=== PATIENT | female | born 1980 | race Caucasian/White ===

== ENCOUNTER → 2017-12-29 14:06 | Outpatient (CLI) | payer BC, SELFPAY ==
--- NOTE | 2017-12-29 | US_ITS ---
MM Dig mamm BI DX w/CAD, US breast RT complete INDICATION: palpable abnormality in the right breast ORDERING PHYSICIAN: Franklyn Barajas MD PATIENT AGE: 37 years COMPARISON: None TECHNIQUE: Dense fibroglandular tissue bilaterally decreasing the sensitivity of mammography. FINDINGS: Scattered areas of asymmetric density which appear to compress out on problem-solving views. No malignant appearing mass or malignant. Microcalcification. Right breast ultrasound complete: No suspicious solid or cystic lesions evident. Heterogeneous fibroglandular tissue noted IMPRESSION: No convincing evidence of malignancy. There are scattered scattered asymmetric densities which are felt to be due to fibroglandular tissue. Suggest 6 month follow-up to confirm baseline BI-RADS Category: 3 Benign Finding Short Term Follow-up RECOMMENDED FOLLOW-UP: 6M - 6 MONTH FOLLOW-UP Negative mammogram and negative ultrasound does not exclude the possibility of malignancy especially in this patient with dense fibroglandular tissue. Any palpable nodule should be managed on a clinical basis (A letter has been sent to the patient regarding results of the study.)
== END ==
PROVIDERS: Family Provider Family Medicine; PCP Family Medicine; Visit Provider Obstetrics & Gynecology
DX: R92.8 Other abnormal and inconclusive findings on diagnostic imaging of breast (principal)
CPT/HCPCS: 76641; 77066

== ENCOUNTER → 2018-07-12 12:45 | Outpatient (CLI) | payer BC, SELFPAY ==
--- NOTE | 2018-07-12 12:46 | MM_ITS ---
MM Dig mamm BI DX w/CAD, US breast RT complete INDICATION: Follow up abnormal mammogram and ultrasound ORDERING PHYSICIAN: Franklyn Barajas MD PATIENT AGE: 37 years COMPARISON: 12/29/2017 TECHNIQUE: Standard images performed with spot compression views and right breast ultrasound FINDINGS: There is fibroglandular tissue which decreases the sensitivity of mammography. Scattered areas of asymmetry are noted. Spot compression views suggest that these areas compress out as fibroglandular tissue. No malignant appearing masses or malignant appearing microcalcifications. Right breast ultrasound: No cystic or solid lesions evident. IMPRESSION: Dense fibroglandular tissue with scattered areas of asymmetry. No evidence of malignancy. Scattered areas of asymmetry are felt to be due to asymmetric tissue. Recommend screening mammogram December 2018 BI-RADS Category: 2 Benign Finding(s) RECOMMENDED FOLLOW-UP: 6M - 6 MONTH FOLLOW-UP (A letter has been sent to the patient regarding results of the study.)
== END ==
PROVIDERS: PCP Family Medicine; Visit Provider Obstetrics & Gynecology
DX: N63.10 Unspecified lump in the right breast, unspecified quadrant (principal)
CPT/HCPCS: 76641; 77066

== ENCOUNTER → 2018-10-09 10:02 | Outpatient (CLI) | payer BC, SELFPAY ==
--- NOTE | 2018-10-09 10:10 | XR_ITS ---
XR knee XR knee LT 4V Comparison: September 27, 2017 3 view left knee History: Left knee pain 10 days. Patient felt pressure with turning. Has bruising at the lower leg. Technique: Weightbearing AP, lateral and Villalpando views were performed as well as oblique. Findings: Today's standing 4 view left knee is compared to previous September 27, 2017 nonweightbearing views of left knee Today's study show no No fracture. No joint effusion. Joint spaces well-maintained with no significant arthritic changes. Bones well mineralized. No erosions. Patellofemoral relationships appear normal. Small flabella accessory ossicle posteriorly the lateral compartment incidentally noted. Normal variant Impression: No fracture nor effusion. Negative left knee.
== END ==
PROVIDERS: PCP Family Medicine; Visit Provider Orthopaedic Surgery
DX: M70.42 Prepatellar bursitis, left knee (principal)
CPT/HCPCS: 73564

== ENCOUNTER → 2018-10-19 09:12 | Outpatient (CLI) | payer BC, SELFPAY ==
--- NOTE | 2018-10-19 09:14 | MR_ITS ---
MR knee LT wo con HISTORY: Left knee pain, meniscal tear, bruising anteriorly swelling ITS.REASON: evaluate for patella tendon injury/ meniscal tear ORDERING PHYSICIAN: Mendy Powell MD PATIENT AGE: 38 years Comparison: 09/27/2018 TECHNIQUE: Standard multiplanar multiecho sequences are performed without contrast. FINDINGS: Cruciate ligaments are intact. Collateral ligaments are intact. The quadriceps tendon and patellar tendon have an unremarkable appearance. Complex fluid collection is present in the prepatellar region measuring 3 cm cephalad to caudad 2 cm transverse and 0.6 cm AP with some internal synechiae. No meniscal tear. No bone marrow edema. There is a small knee joint effusion with some loculated fluid noted on the distal femur at the diaphyseal metaphyseal junction medially. IMPRESSION: 1. No evidence of internal derangement 2. Complex fluid collection in the prepatellar region possibly due to prepatellar bursitis. The patellar tendon does appear intact. 3. Small knee joint effusion with loculation along the medial aspect of the distal femoral shaft
== END ==
PROVIDERS: PCP Family Medicine; Visit Provider Orthopaedic Surgery
DX: M25.562 Pain in left knee (principal)
CPT/HCPCS: 73721

== ENCOUNTER → 2019-07-11 07:49 | Outpatient (CLI) | payer BC, SELFPAY ==
--- NOTE | 2019-07-11 07:49 | MM_ITS ---
PROCEDURE: MM DIG SCREENING MAMM BI W/CAD CLINICAL INDICATION: screening There is a history of breast cancer patient's mother diagnosed after menopause and in the patient's maternal and paternal aunt. COMPARISON: Digital mammogram 12/29/2017 And 07/12/2018 TECHNIQUE: Standard CC and MLO images were obtained. R2 CAD reviewed. FINDINGS: Prominent diffuse heterogenic fibroglandular densities are seen throughout both breasts. Again noted is asymmetrically increased glandular elements in the upper outer quadrant right breast which are stable unchanged from the previous exams. There is no new or suspicious lesion in either breast and no suspicious microcalcifications. IMPRESSION: Prominent heterogenic breast density with no suspicious lesions seen BI-RAD Category: 1 Negative FOLLOW-UP: 1YR 1 Year Follow-up (A letter has been sent to the patient regarding results of the study.) Dictated by: Dr. Lawrence Ford MD 07/12/2019 11:[address] Lawrence Ford MD in [place] 07/12/2019 11:57
== END ==
PROVIDERS: PCP Family Medicine; Visit Provider Obstetrics & Gynecology
DX: Z12.31 Encounter for screening mammogram for malignant neoplasm of breast (principal)
CPT/HCPCS: 77067

== ENCOUNTER → 2020-02-09 11:08 | Outpatient (CLI) | payer BC, SELFPAY ==
[2020-02-10 08:35] LABS: Covid-19 Nasal PCR Sendout UK Not Detected
== END ==
PROVIDERS: PCP Family Medicine; Visit Provider Family Medicine
DX: Z03.818 Encounter for observation for suspected exposure to other biological agents ruled out (principal); Z11.59 Encounter for screening for other viral diseases
CPT/HCPCS: U0003

== ENCOUNTER → 2020-02-20 10:46 | Outpatient (CLI) | payer BC, SELFPAY ==
[2020-02-21 13:42] LABS: Covid-19 Nasal PCR Sendout Lex NOT DETECTED
== END ==
PROVIDERS: PCP Family Medicine; Visit Provider Family Medicine
DX: Z03.818 Encounter for observation for suspected exposure to other biological agents ruled out (principal)
CPT/HCPCS: U0004

== ENCOUNTER → 2020-03-10 15:22 | Outpatient (CLI) | payer BC, SELFPAY | PROVIDERS: PCP Family Medicine; Visit Provider Family Medicine | DX: Z03.818 Encounter for observation for suspected exposure to other biological agents ruled out (principal) | CPT/HCPCS: U0003 ==

== ENCOUNTER → 2020-04-16 07:37 | Outpatient (CLI) | payer BC, SELFPAY ==
--- NOTE | 2020-04-16 07:45 | MR_ITS ---
PROCEDURE: MR KNEE RT WO CON CLINICAL INDICATION: ACUTE PAIN OF RIGHT KNEE, POSITIVE LUIS MANUEL TEST POSTERIOR AND MEDIAL SIDED KNEE PAIN. KNEE INSTability. PAIN WHEN BENDING AND SQUATING. NO INJURY. SYMPTOMS X1.5 MONTHS. NO PRIOR. COMPARISON: CR [id number] XR knee LT 3V from 09/27/2018 TECHNIQUE: Routine multiplanar multi echo sequences are performed without gadolinium enhancement. FINDINGS: The cruciate ligaments, collateral ligaments, patellar tendon, and quadriceps tendon are intact. No meniscal tear apparent. No bone bruise. The joint spaces are well preserved. No significant effusion. IMPRESSION: Negative MRI of the right knee. No internal derangement apparent Dictated by: Donavan Hager MD 04/18/2020 10:59 Donavan Hager MD in [place] 04/18/2020 10:59
== END ==
LOC: RAD 07:37
PROVIDERS: PCP Family Medicine; Visit Provider Family Medicine
DX: M25.561 Pain in right knee (principal); S83.206A Unspecified tear of unspecified meniscus, current injury, right knee, initial encounter
CPT/HCPCS: 73721

== ENCOUNTER → 2020-07-02 15:37 | Outpatient (CLI) | payer BC, SELFPAY ==
[2020-07-02 16:27] LABS: Basophils # 0.1 K/mm3 (0-0.2); Basophils % 0.7 % (0.1-2.0); Eosinophils # 0.1 K/mm3 (0.0-0.4); Eosinophils % 1.4 % (0.1-12.0); Hematocrit 46.1 % (37.0-47.0); Hemoglobin 15.6 g/dL (12.2-16.2); Lymphocytes # 2.4 K/mm3 (0.7-4.5); Lymphocytes % 26.4 % (10-50); Mean Corpuscular HGB Conc 33.8 g/dL (31.8-35.4); Mean Corpuscular Hemoglobin 30.1 pg (27.0-31.2); Mean Platelet Volume 7.9 fl (7.4-10.4); Monocytes # 0.4 K/mm3 (0.1-1.0); Monocytes % 4.5 % (1.7-9.3); Neutrophils # 6.1 K/mm3 (1.8-7.8); Platelet Count 309 K/mm3 (142-424); Red Blood Count 5.18 M/mm3 (4.20-5.40); Red Cell Distribution Width 13.1 % (11.5-17.5); White Blood Count 9.1 K/mm3 (4.8-10.8)
[2020-07-02 16:39] LABS: Strep Scrn Group A (Rapid) Negative (Negative)
== END ==
PROVIDERS: Physician Assistant; Visit Provider Family Medicine
DX: J02.9 Acute pharyngitis, unspecified (principal)
CPT/HCPCS: 36415; 85025; 87070; 87430

== ENCOUNTER → 2020-07-08 14:58 | Outpatient (CLI) | payer BC, SELFPAY ==
--- NOTE | 2020-07-08 15:01 | MM_ITS ---
PROCEDURE: MM DIG SCREENING MAMM BI W/CAD . CLINICAL INDICATION: SCREENING there is a history of breast cancer patient's mother diagnosed after menopause and in the patient's maternal aunt. COMPARISON: MG DXBI MM Dig mamm BI DX w/CAD from 12/29/2017 MG DXBI MM Dig mamm BI DX w/CAD from 07/12/2018 MG MM DIG SCREENING MAMM BI W/CAD from 07/11/2019 TECHNIQUE: Standard CC and MLO images and 3D Tomosynthesis was obtained. R2 CAD reviewed. FINDINGS: Prominent somewhat heterogenic fibroglandular densities are seen throughout both breast. Again somewhat asymmetrically increased glandular elements are seen upper outer quadrant right breast. There has been some mild progressive fatty replacement of the breast parenchyma compared with earlier studies. There is no new or suspicious lesion in either breast and no suspicious microcalcifications. IMPRESSION: Diffusely dense parenchymal pattern with no suspicious lesions seen BI-RAD Category: 1 Negative FOLLOW-UP: 1YR 1 Year Follow-up (A letter has been sent to the patient regarding results of the study.) Dictated by: Dr. Lawrence Ford MD 07/10/2020 13:37 Dr. Lawrence Ford MD in [place] 07/10/2020 13:37
== END ==
PROVIDERS: PCP Family Medicine; Visit Provider Family Medicine
DX: Z12.31 Encounter for screening mammogram for malignant neoplasm of breast (principal)
CPT/HCPCS: 77063; 77067

== ENCOUNTER 2020-12-12 15:10 | Emergency (ER) | payer BC, SELFPAY ==
[2020-12-12 15:15] VITALS: BP 122/78; PULSE 75; RESP 19; TEMP 36.9; O2SAT 100; BMI 26.2
--- NOTE | 2020-12-12 15:36 | HMH.EDUTC ---
[facility] [place] Disposition Clinical Impression: Strep pharyngitis Disposition: Home, Self-Care Condition on Discharge: Good Instructions: DI for Strep Throat Prescriptions: Amoxicillin [Amoxicillin 875MG Tab] 875 mg PO Q12H #20 tab Transmission Status: Pending to [facility] Fluconazole [Diflucan 150mg tab] 150 mg PO ONCE 1 Days #1 tab Transmission Status: Pending to [facility] Referrals: Fredrick May MD [Primary Care Provider] - Time of Disposition: 15:40 Medical Decision Making - Scout Inquiry Pt receiving controlled substance: No Vital Signs: 12/12/20 15:15 Temperature 98.5 F Temperature Source Oral Pulse Rate [Right Brachial] 75 Respiratory Rate 19 Blood Pressure [Right Arm] 122/78 Blood Pressure Mean [Right Arm] 92 Blood Pressure Source [Right Arm] Automatic Cuff Blood Pressure Position [Right Arm] Sitting 02 Sat by Pulse Oximetry 100 Oxygen Delivery Method Room Air - Lab Data Lab results reviewed: Yes: I reviewed the patient's lab results. [facility] [place] HPI - General Stated complaint: sore throat Time Seen by Provider: 12/12/20 15:36 Mode of Arrival: Ambulatory Source of Information: Patient Limitations: No Limitations Description of Symptoms (Recalled from Triage Doc. by RN): PATIENT C/O SORE THROAT AND HEADACHE SINCE YESTERDAY. SON WAS DX WITH STREP LAST WEEK HEENT Symptoms (Recalled from RN notes): Yes Resp Symptoms (Recalled from RN notes): No Skin Symptoms (Recalled from RN notes): No MS Symptoms (Recalled from RN notes): No Functional Status (Recalled from RN notes): WNL - History of Present Illness Provider Complaint: Sore throat and headache since yesterday. Son had strep a few weeks ago. Onset (ago): day(s) (1) Relieving factors: none Exacerbating factors: none Associated symptoms: denies other symptoms Treatments prior to arrival: none - Related Data Previous Rx's Medication Instructions Recorded Amoxicillin [Amoxicillin 875MG 875 mg PO Q12H #20 tab 12/12/20 Tab] Fluconazole [Diflucan 150mg tab] 150 mg PO ONCE 1 Days #1 tab 12/12/20 Allergies Allergy/AdvReac Type Severity Reaction Status Date / Time No Known Allergies Allergy Verified 11/29/18 09:10 - Worker's Comp Is this a Worker's Comp case?: No [facility] History - Hepatitis A Screen Drug use history?: No High risk sexual behaviors?: No History of sexually transmitted infection?: No Currently employed?: No Childcare worker?: No Do you have indoor plumbing?: Yes Do you have electricity?: Yes Attestation statement:: This patient has been screened for Hepatitis A risk factors. I have reviewed the patient's past medical history: Yes Medical History: Denies:: Cancer, Diabetes Mellitus Type 1, Diabetes Mellitus Type 2, Internal Pacemaker, MRSA, Seizures Other Medical History: Denies: Blood Transfusion Reaction Laterality Cases: Left: Other Other Surgeries: Yes: Cholecystectomy, Tubal Ligation, Other. No: Pacemaker Amputation: No Fractures: No Comment: 2013- Lap Cholecystectomy. 2013- Rt. Ankle surgery. 2016- BTL - Social History Smoking Status: Current every day smoker Tobacco Type: cigarettes # Packs/Day (cigarettes): 1 Alcohol Intake: never Substance Use Type: denies use Occupational Status: other Housing: house Household Members: spouse, family Family Hx:: Cancer, Diabetes ROS Obtained: Yes All systems reviewed & no additional complaints - ENT Ears, Nose, Mouth, and Throat: Reports headache(s), Reports sore throat Physical Exam - General General appearance: alert, in no apparent distress - Eye Eye exam: Present: PERRL - ENT ENT exam: Present: TM's normal bilaterally - Expanded ENT Exam Throat exam: Present: tonsillar erythema, tonsillomegaly, tonsillar exudate - Respiratory Respiratory exam: Present: normal lung sounds bilaterally - Cardiovascular Cardiovascular exam: Present: regular rate, normal rhythm - Neurological Exam Neurological exam
[2020-12-12 15:38] LABS: UTC Strep Screen (Rapid) Negative (Negative)
[2020-12-12 15:40] VITALS: BP 122/78; PULSE 75; RESP 19; TEMP 36.9; O2SAT 100
== END 2020-12-12 15:42 | disposition home or self-care (01) ==
PROVIDERS: Emergency Provider Physician Assistant; PCP Family Medicine
DX: J02.0 Streptococcal pharyngitis (principal)
CPT/HCPCS: 87880; 99202; G0463

== ENCOUNTER 2021-06-06 09:53 | Emergency (ER) | payer BC, SELFPAY ==
[2021-06-06 10:00] VITALS: BP 141/89; PULSE 75; RESP 18; TEMP 36.8; O2SAT 98; BMI 26.7
--- NOTE | 2021-06-06 10:45 | HMH.EDUTC ---
[facility] [place] Disposition Clinical Impression: Acute maxillary sinusitis Qualifiers: Recurrence: non-recurrent Qualified Code(s): J01.00 - Acute maxillary sinusitis, unspecified Disposition: Home, Self-Care Condition on Discharge: Good Instructions: Sinusitis, DI for Sinusitis Additional Instructions: Start antibiotic patient to take as ordered for a full length of time even if you feel better. Sinus infections do not get better overnight. It may take 2-3 days to notice much improvement so be sure to use conservative measures as discussed for symptoms. Increase fluids Humidifier/vaporizer as needed Tylenol and ibuprofen as needed for fever or pain. If symptoms do not improve or get worse return or be seen in the ER Follow-up with primary care this week Prescriptions: methylPREDNISolone [Medrol 4mg tab] 4 mg PO DIRECTED #21 tab Transmission Status: Pending to [facility] Azithromycin [Zithromax 250mg tab] 250 mg PO DIRECTED #6 tab Transmission Status: Pending to [facility] Referrals: Fredrick May MD [Primary Care Provider] - Time of Disposition: 10:54 Medical Decision Making - Scout Inquiry Pt receiving controlled substance: No Vital Signs: 06/06/21 10:00 Temperature 98.3 F Temperature Source Oral Pulse Rate [Left Brachial] 75 Respiratory Rate 18 Blood Pressure [Left Arm] 141/89 H Blood Pressure Mean [Left Arm] 106 Blood Pressure Source [Left Arm] Automatic Cuff Blood Pressure Position [Left Arm] Sitting 02 Sat by Pulse Oximetry 98 Oxygen Delivery Method Room Air [facility] [place] HPI - General Chief complaint: Urgent Treatment Center Stated complaint: sinus headache, chest congetion Time Seen by Provider: 06/06/21 10:45 Mode of Arrival: Ambulatory Source of Information: Patient Limitations: No Limitations Description of Symptoms (Recalled from Triage Doc. by RN): PATIENT C/O SINUS PRESSURE, COUGH AND CHEST CONGESTION X 2 DAYS HEENT Symptoms (Recalled from RN notes): No Resp Symptoms (Recalled from RN notes): No Skin Symptoms (Recalled from RN notes): No MS Symptoms (Recalled from RN notes): No Functional Status (Recalled from RN notes): WNL - History of Present Illness Provider Complaint: 40 yr old female presents for sinus pressure,yellow thick drainage,coughing up yellow sputum, maxillary pain, tooth pain and sore throat for 1 week and not improving - Related Data Previous Rx's Medication Instructions Recorded Amoxicillin [Amoxicillin 875MG 875 mg PO Q12H #20 tab 12/12/20 Tab] Fluconazole [Diflucan 150mg tab] 150 mg PO ONCE 1 Days #1 tab 12/12/20 Azithromycin [Zithromax 250mg 250 mg PO DIRECTED #6 tab 06/06/21 tab] methylPREDNISolone [Medrol 4mg 4 mg PO DIRECTED #21 tab 06/06/21 tab] Allergies Allergy/AdvReac Type Severity Reaction Status Date / Time No Known Allergies Allergy Verified 11/29/18 09:10 - Worker's Comp Is this a Worker's Comp case?: No [facility] History - Hepatitis A Screen Drug use history?: No High risk sexual behaviors?: No History of sexually transmitted infection?: No Currently employed?: No Childcare worker?: No Do you have indoor plumbing?: Yes Do you have electricity?: Yes Attestation statement:: This patient has been screened for Hepatitis A risk factors. I have reviewed the patient's past medical history: Yes Medical History: Denies:: Cancer, Diabetes Mellitus Type 1, Diabetes Mellitus Type 2, Internal Pacemaker, MRSA, Seizures Other Medical History: Denies: Blood Transfusion Reaction Laterality Cases: Left: Other Other Surgeries: Yes: Cholecystectomy, Tubal Ligation, Other. No: Pacemaker Amputation: No Fractures: No Comment: 2013- Lap Cholecystectomy. 2013- Rt. Ankle surgery. 2016- BTL - Social History Smoking Status: Current every day smoker Tobacco Type: cigarettes # Packs/Day (cigarettes): 1 Alcohol Intake: never Substance Use Type: denies use Occupational Status: other Housing: hous
[2021-06-06 10:55] VITALS: BP 141/89; PULSE 75; RESP 18; TEMP 36.8; O2SAT 98
== END 2021-06-06 10:59 | disposition home or self-care (01) ==
PROVIDERS: Emergency Provider Nurse Practitioner Family; PCP Family Medicine
DX: J01.00 Acute maxillary sinusitis, unspecified (principal); F17.210 Nicotine dependence, cigarettes, uncomplicated
CPT/HCPCS: 99202; G0463

== ENCOUNTER → 2021-07-23 15:03 | Outpatient (CLI) | payer BC, SELFPAY ==
--- NOTE | 2021-07-23 15:08 | MM_ITS ---
PROCEDURE INFORMATION: Exam: MG Bilateral Screening 3D Mammography Exam date and time: 07/23/2021 3:08 PM Age: 40 years old Clinical indication: Encounter for screening mammogram for malignant neoplasm of breast TECHNIQUE: Imaging protocol: Bilateral screening tomosynthesis and 2D mammography including computer-aided detection (CAD) when performed. COMPARISON: 1. MG MM DIG SCREENING MAMM BI W/CAD 07/08/2020 3:00 PM 2. MG MM DIG SCREENING MAMM BI W/CAD 07/11/2019 8:21 AM FINDINGS: MAMMOGRAPHY: Breast composition: The breast tissue is heterogeneously dense, which may obscure small masses. Mass: Broad nodular asymmetry occupying much of the middle third of the right upper outer quadrant is most likely on the basis of underlying cystic change. Architectural distortion: None. Calcifications: No suspicious calcifications. Asymmetric density: None. Skin thickening: None. Axillary adenopathy: None. IMPRESSION: Patient to be recalled for right breast ultrasound for further evaluation of a right breast asymmetry. ASSESSMENT: BI-RADS Category 0: Incomplete- Need Additional Imaging Evaluation and/or Prior Mammograms for Comparison
== END ==
PROVIDERS: PCP Family Medicine; Visit Provider Family Medicine
DX: Z12.31 Encounter for screening mammogram for malignant neoplasm of breast (principal)
CPT/HCPCS: 77063; 77067

== ENCOUNTER 2021-07-26 09:42 | Emergency (ER) | payer BC, SELFPAY ==
[2021-07-26 10:04] VITALS: BP 130/91; PULSE 102; RESP 16; TEMP 36.9; O2SAT 98; BMI 26.5
[2021-07-26 10:13] LABS: UTC Strep Screen (Rapid) Positive (Negative)
[2021-07-26 10:22] VITALS: BP 130/91; PULSE 102; RESP 16; TEMP 36.9
--- NOTE | 2021-07-26 10:47 | HMH.EDUTC ---
[facility] [place] Disposition Clinical Impression: Strep throat Disposition: Home, Self-Care Condition on Discharge: Good Instructions: Strep Throat, DI for Strep Throat Additional Instructions: Drink plenty of fluids. Take tylenol or ibuprofen for pain or fever. Take the medications as directed. Follow up with your regular doctor. GO TO THE ER FOR ANY WORSENING SYMPTOMS Throw your tooth brush away and get a new one. Quarantine until you know the results of your covid-19 test. If it is positive, the health department should call you and give you further instructions about your length of Quarantine and other things. Notify your school or workplace of your results and follow their instructions regarding return to work/school. Prescriptions: Amoxicillin/Potassium Clav [Augmentin 875-125 Tablet] 1 tab PO Q12H 10 Days #20 tab Transmission Status: Received by [facility] Benzonatate [Benzonatate 100mg cap] 100 mg PO TIDP PRN #30 cap PRN Reason: Cough Transmission Status: Received by [facility] methylPREDNISolone [Medrol] 4 mg PO DIRECTED 6 Days #21 packet Transmission Status: Received by [facility] Referrals: Fredrick May MD [Primary Care Provider] - Forms: Work/School Release Time of Disposition: 11:01 Medical Decision Making - Medical Records Medical records reviewed: No: I reviewed the patient's medical records. - Scout Inquiry Pt receiving controlled substance: No Vital Signs: 07/26/21 10:04 07/26/21 10:22 Temperature 98.4 F 98.4 F Temperature Source Oral Pulse Rate 102 H Pulse Rate [Right] 102 H Respiratory Rate 16 16 Blood Pressure 130/91 H Blood Pressure [Right Arm] 130/91 H Blood Pressure Mean [Right Arm] 104 02 Sat by Pulse Oximetry 98 - Lab Data Lab results reviewed: Yes: I reviewed the patient's lab results. Lab Results 07/26/21 10:06: Strep Scn Rapid [facility] Positive A [facility] [place] HPI - General Stated complaint: sore throat, cough, congestion, h/a Time Seen by Provider: 07/26/21 10:47 Mode of Arrival: Ambulatory Source of Information: Patient Limitations: No Limitations Description of Symptoms (Recalled from Triage Doc. by RN): pt c/o cough, congestion, sore throat, and INIGUEZ. x3 days. HEENT Symptoms (Recalled from RN notes): Yes (congestion, sore throat and INIGUEZ) Resp Symptoms (Recalled from RN notes): Yes (cough) Skin Symptoms (Recalled from RN notes): No MS Symptoms (Recalled from RN notes): No Functional Status (Recalled from RN notes): wnl - History of Present Illness Provider Complaint: She c/o sore throat for the past 2 days. She has had a cough and low grade fever too. Her son has strep throat and her mother has covid-19. She wants to be checked for both of these. - Related Data Previous Rx's Medication Instructions Recorded Amoxicillin [Amoxicillin 875MG 875 mg PO Q12H #20 tab 12/12/20 Tab] Fluconazole [Diflucan 150mg tab] 150 mg PO ONCE 1 Days #1 tab 12/12/20 Azithromycin [Zithromax 250mg 250 mg PO DIRECTED #6 tab 06/06/21 tab] methylPREDNISolone [Medrol 4mg 4 mg PO DIRECTED #21 tab 06/06/21 tab] Amoxicillin/Potassium Clav 1 tab PO Q12H 10 Days #20 tab 07/26/21 [Augmentin 875-125 Tablet] Benzonatate [Benzonatate 100mg 100 mg PO TIDP PRN #30 cap 07/26/21 cap] methylPREDNISolone [Medrol] 4 mg PO DIRECTED 6 Days #21 07/26/21 packet Allergies Allergy/AdvReac Type Severity Reaction Status Date / Time No Known Allergies Allergy Verified 11/29/18 09:10 - Worker's Comp Is this a Worker's Comp case?: No [facility] History - Hepatitis A Screen Drug use history?: No High risk sexual behaviors?: No History of sexually transmitted infection?: No Currently employed?: No Childcare worker?: No Do you have indoor plumbing?: Yes Do you have electricity?: Yes Attestation statement:: This patient has been screened for Hepatitis A risk factors. I have reviewed the patient's
== END 2021-07-26 11:16 | disposition home or self-care (01) ==
PROVIDERS: Emergency Provider Nurse Practitioner Family; PCP Family Medicine
DX: J02.0 Streptococcal pharyngitis (principal); Z20.822 Contact with and (suspected) exposure to COVID-19; F17.210 Nicotine dependence, cigarettes, uncomplicated
CPT/HCPCS: 87880; 99203; C9803; G0463; U0003; U0005

== ENCOUNTER → 2021-07-28 10:11 | Outpatient (CLI) | payer BC, SELFPAY ==
[2021-07-28 10:46] LABS: Adenovirus,PCR Not Detected (NotDetected); Bordetella Pertussis Not Detected (NotDetected); Chlamydophila Pneumoniae, PCR Not Detected (NotDetected); Coronavirus 19, PCR Not Detected (NotDetected); Coronavirus 229E Not Detected (NotDetected); Coronavirus NL63 Not Detected (NotDetected); Coronavirus OC43 Not Detected (NotDetected); Coronovirus HKU1,PCR Not Detected (NotDetected); Influenza A, PCR Not Detected (NotDetected); Influenza AH1, 2009 Not Detected (NotDetected); Influenza AH1, PCR Not Detected (NotDetected); Influenza AH3,PCR Not Detected (NotDetected); Influenza B, PCR Not Detected (NotDetected); Mycoplasma Pneumoniae, PCR Not Detected (NotDetected); Parainfluenza 1, PCR Not Detected (NotDetected); Parainfluenza 2, PCR Not Detected (NotDetected); Parainfluenza 3, PCR Not Detected (NotDetected); Parainfluenza 4, PCR Not Detected (NotDetected); Respiratory Syncytial Virus Not Detected (NotDetected); Rhinovirus/Enterovirus Not Detected (NotDetected)
[2021-07-28 13:34] LABS: Human Metapneumovirus Detected (NotDetected)
== END ==
PROVIDERS: PCP Family Medicine; Visit Provider Family Medicine
DX: Z20.822 Contact with and (suspected) exposure to COVID-19 (principal); B97.81 Human metapneumovirus as the cause of diseases classified elsewhere
CPT/HCPCS: 87581; 87632; 87798; C9803; U0003; U0005

== ENCOUNTER → 2021-08-05 08:29 | Outpatient (CLI) | payer BC, SELFPAY ==
--- NOTE | 2021-08-05 08:35 | US_ITS ---
PROCEDURE INFORMATION: Exam: US Right Breast, Complete Exam date and time: 08/05/2021 8:35 AM Age: 40 years old Clinical indication: Patient recalled for further evaluation nodular asymmetry in the right breast TECHNIQUE: Imaging protocol: Complete ultrasound of all four quadrants of the Right breast and the retroareolar regions, including ultrasound of the axilla when performed. COMPARISON: BREASTRT US breast RT complete 07/12/2018 1:53 PM FINDINGS: Breast: Sonographic images of the right breast including the retroareolar region, all 4 quadrants and the axilla do not demonstrate any solid masses. Minimal subcentimeter cystic change is present. Dense somewhat nodular benign-appearing parenchyma is identified in the right upper outer quadrant. No architectural distortion or acoustical shadowing. No skin thickening or axillary adenopathy. IMPRESSION: A six-month follow-up diagnostic right mammogram is recommended to ensure stability broad nonspecific nodular asymmetry occupying much of the right upper outer quadrant. ASSESSMENT: BI-RADS Category 3: Probably benign
== END ==
LOC: RAD 08:29
PROVIDERS: PCP Family Medicine; Visit Provider Physician Assistant
DX: R92.8 Other abnormal and inconclusive findings on diagnostic imaging of breast (principal)
CPT/HCPCS: 76641

== ENCOUNTER 2021-08-09 09:05 | Emergency (ER) | payer BC, SELFPAY ==
--- NOTE | 2021-08-09 09:27 | XR_ITS ---
PROCEDURE INFORMATION: Exam: XR Left Foot Exam date and time: 08/09/2021 9:27 AM Age: 40 years old Clinical indication: Injury or trauma; Fall; Sprain or strain; Left; Injury date: 08/06/21; Injury details: Rolled ankle and foot TECHNIQUE: Imaging protocol: XR Left foot. Views: 3 or more views. COMPARISON: KNEELTWO MR knee LT wo con 10/19/2018 9:23 AM FINDINGS: Bones/joints: No acute fracture or malalignment. Joint spaces are maintained. Soft tissues: Normal. IMPRESSION: No acute fracture or malalignment.
--- NOTE | 2021-08-09 09:27 | XR_ITS ---
PROCEDURE INFORMATION: Exam: XR Left Ankle Exam date and time: 08/09/2021 9:27 AM Age: 40 years old Clinical indication: Injury or trauma; Fall; Sprain or strain; Ankle and foot; Left; Additional info: Rolled ankle TECHNIQUE: Imaging protocol: XR Left ankle. Views: 3 or more views. COMPARISON: CR XR FOOT LT MIN 3V 08/09/2021 9:33 AM FINDINGS: Bones/joints: No acute fracture or malalignment. Joint spaces are maintained. Soft tissues: Normal. IMPRESSION: No acute fracture or malalignment.
[2021-08-09 09:32] VITALS: BP 135/87; PULSE 103; RESP 18; TEMP 36.5; O2SAT 98; BMI 26.5
--- NOTE | 2021-08-09 09:41 | HMH.EDUTC ---
[facility] [place]: Sprain of left foot Qualifiers: Encounter type: initial encounter Qualified Code(s): S93.602A - Unspecified sprain of left foot, initial encounter Left ankle sprain Qualifiers: Encounter type: initial encounter Involved ligament of ankle: unspecified ligament Qualified Code(s): S93.402A - Sprain of unspecified ligament of left ankle, initial encounter Disposition: Home, Self-Care Condition on Discharge: Good Instructions: DI for Ankle Sprain, Ankle Sprain, DI for Foot Sprain, How to Apply an Abel Wrap Additional Instructions: Rest the extremity, apply ice for 15 minutes as tolerated three or four times per day, Wear the abel wrap for compression, Elevate the extremity as tolerated while you are resting. Take ibuprofen for pain. I sent in a prescription to your pharmacy. Follow up with Dr. Lemon (podiatry). Sometimes there can be fractures that don't show up well on the first set of x-rays. So, you should follow up if you continue to have symptoms. I put in a referral but you need to call her office and schedule an appointment. Follow up with your regular doctor. GO TO THE ER FOR ANY WORSENING SYMPTOMS Prescriptions: Ibuprofen [Ibuprofen 800mg Tablet] 800 mg PO Q8HP PRN #30 tab PRN Reason: Moderate Pain Transmission Status: Pending to [facility] Referrals: Fredrick May MD [Primary Care Provider] - Pniky Lemon DPM [Staff Physician] - Forms: Work/School Release Time of Disposition: 10:25 Medical Decision Making - Medical Records Medical records reviewed: No: I reviewed the patient's medical records. - Scout Inquiry Pt receiving controlled substance: No Vital Signs: 08/09/21 09:32 Temperature 97.7 F Temperature Source Oral Pulse Rate [Left] 103 H Respiratory Rate 18 Blood Pressure [Right Arm] 135/87 Blood Pressure Mean [Right Arm] 103 02 Sat by Pulse Oximetry 98 - Radiology Data #1 Image(s): Ankle Image Reviewed: Yes I reviewed the patient's radiology image, Yes I have reviewed radiologist's interpretation Preliminary Findings: Normal/NAD, No Fracture Seen PROCEDURE INFORMATION: Exam: XR Left Ankle Exam date and time: 08/09/2021 9:27 AM Age: 40 years old Clinical indication: Injury or trauma; Fall; Sprain or strain; Ankle and foot; Left; Additional info: Rolled ankle TECHNIQUE: Imaging protocol: XR Left ankle. Views: 3 or more views. COMPARISON: CR XR FOOT LT MIN 3V 08/09/2021 9:33 AM FINDINGS: Bones/joints: No acute fracture or malalignment. Joint spaces are maintained. Soft tissues: Normal. IMPRESSION: No acute fracture or malalignment. #2 Image(s): Foot/Toes Image Reviewed: Yes I reviewed the patient's radiology image, Yes I have reviewed radiologist's interpretation Preliminary Findings: No Fracture Seen PROCEDURE INFORMATION: Exam: XR Left Foot Exam date and time: 08/09/2021 9:27 AM Age: 40 years old Clinical indication: Injury or trauma; Fall; Sprain or strain; Left; Injury date: 08/06/21; Injury details: Rolled ankle and foot TECHNIQUE: Imaging protocol: XR Left foot. Views: 3 or more views. COMPARISON: KNEELTWO MR knee LT wo con 10/19/2018 9:23 AM FINDINGS: Bones/joints: No acute fracture or malalignment. Joint spaces are maintained. Soft tissues: Normal. IMPRESSION: No acute fracture or malalignment. [facility] [place] Stated complaint: left foot injury 08/06/21 Time Seen by Provider: 08/09/21 09:41 Mode of Arrival: Ambulatory Source of Information: Patient Limitations: No Limitations Description of Symptoms (Recalled from Triage Doc. by RN): PT STATES SHE ROLLED HER ANKLE AND FOOT THREE DAYS AGO. PT IS COMPLAING OF LEFT FOOT PAIN. HEENT Symptoms (Recalled from RN notes): No Resp Symptoms (Recalled from RN notes)
[2021-08-09 10:36] VITALS: BP 142/94; PULSE 94; RESP 18; TEMP 36.5
== END 2021-08-09 10:37 | disposition home or self-care (01) ==
PROVIDERS: Emergency Provider Nurse Practitioner Family; PCP Family Medicine
DX: S93.602A Unspecified sprain of left foot, initial encounter (principal); S93.402A Sprain of unspecified ligament of left ankle, initial encounter; X50.1XXA Overexertion from prolonged static or awkward postures, initial encounter; Y92.9 Unspecified place or not applicable; F17.210 Nicotine dependence, cigarettes, uncomplicated
CPT/HCPCS: 73610; 73630; 99202; G0463

== ENCOUNTER 2021-08-30 09:00 | Emergency (ER) | payer BC, SELFPAY ==
[2021-08-30 09:10] VITALS: BP 128/91; PULSE 94; RESP 18; TEMP 37.1; O2SAT 98; BMI 26.5
--- NOTE | 2021-08-30 09:37 | HMH.EDUTC ---
[facility] [place]ression: Bronchitis Sinusitis Qualifiers: Sinusitis location: unspecified location Chronicity: unspecified Qualified Code(s): J32.9 - Chronic sinusitis, unspecified Disposition: Home, Self-Care Condition on Discharge: Good Instructions: Sinusitis, DI for Sinusitis Additional Instructions: ? Start antibiotic today. Be sure to complete entire prescription even if feeling better ? Monitor temp. Tylenol every 4 hours as needed and / or ibuprofen every 6 hours as needed ( As long as your primary care physician has told you that it ok to take both. For fever/aches/pains ER if no less than 101 despite Tylenol or Motrin ? Humidifier/vaporizer or hot steamy shower *Tessalon Perles will not cause drowsiness but use at bedtime to help stop cough so that you may get some rest. *Start steroid today. Helps with inflammation therefore, cough and wheezing. Follow directions on the package. Reviewed side effects. Patient reports taking them before. Follow up IMMEDIATELY for new or worsening of symptoms OR no noticeable improvement over the next 48-72 hours. 911 immediately for any life threatening symptoms such as chest pain or difficulty breathing Prescriptions: Benzonatate [Benzonatate 100mg cap] 100 mg PO Q8HP PRN #15 cap PRN Reason: Cough [facility]: [facility] Amoxicillin/Potassium Clav [Augmentin 875-125 Tablet] 1 tab PO Q12H 10 Days #20 tab Transmission Status: [facility] methylPREDNISolone [Medrol 4mg tab] 4 mg PO DIRECTED #21 tab Transmission Status: [facility] Referrals: Fredrick May MD [Primary Care Provider] - As needed Time of Disposition: 10:28 Medical Decision Making - Scout Inquiry Pt receiving controlled substance: No Scout was queried for this patient: No Vital Signs: 08/30/21 09:10 08/30/21 09:54 Temperature 98.7 F 98.7 F Temperature Source Oral Pulse Rate 94 H Pulse Rate [Right Brachial] 94 H Respiratory Rate 18 18 Blood Pressure 128/91 H Blood Pressure [Right Arm] 128/91 H Blood Pressure Mean [Right Arm] 103 Blood Pressure Source [Right Arm] Automatic Cuff Blood Pressure Position [Right Arm] Sitting 02 Sat by Pulse Oximetry 98 Oxygen Delivery Method Room Air - Lab Data Lab results reviewed: Yes: I reviewed the patient's lab results. Lab Results 08/30/21 09:20: Group A Strep Rapid Negative Orders (Tests/Meds): ORDERS Category Date Time Status Strep Screen Confirmation Stat Micro 08/30/21 09:20 [place] [facility] [place] - General Stated complaint: sore throat, congestion, h/a Time Seen by Provider: 08/30/21 09:37 Mode of Arrival: Ambulatory Source of Information: Patient Limitations: No Limitations Description of Symptoms (Recalled from Triage Doc. by RN): PATIENT C/O SORE THROAT, HEADACHE, CONGESTION, AND SINUS PRESSURE SINCE TUESDAY HEENT Symptoms (Recalled from RN notes): Yes Resp Symptoms (Recalled from RN notes): No Skin Symptoms (Recalled from RN notes): No MS Symptoms (Recalled from RN notes): No Functional Status (Recalled from RN notes): WNL - History of Present Illness Provider Complaint: Patient state that she has been having sinus issues for over a week State Since Tue she has been having worsening of sinus pain and pressure along with cough and feels like it is draining in the back of her throat and moving into her chest area States that today she was still feeling bad so she came in to get checked out - Related Data Previous Rx's Medication Instructions Recorded Amoxicillin/Potassium Clav 1 tab PO Q12H 10 Days #20 tab 08/30/21 [Augmentin 875-125 Tablet] Benzonatate [Benzonatate 100mg 100 mg PO Q8HP PRN #15 cap 08/30/21 cap] methylPREDNISolone [Medrol 4mg 4 mg PO DIRECTED #21 tab 08/30/21 tab] Allergies Allergy/AdvReac Type Severity Reaction Status Date / Time No Known Allergies Allergy Verified 11/29/18 09:
[2021-08-30 09:54] VITALS: BP 128/91; PULSE 94; RESP 18; TEMP 37.1; O2SAT 98
[2021-08-30 09:55] LABS: Strep Scrn Group A (Rapid) Negative (Negative)
== END 2021-08-30 10:33 | disposition home or self-care (01) ==
PROVIDERS: Emergency Provider Nurse Practitioner; PCP Family Medicine
DX: J20.9 Acute bronchitis, unspecified (principal); J32.9 Chronic sinusitis, unspecified; F17.210 Nicotine dependence, cigarettes, uncomplicated
CPT/HCPCS: 87430; 99202; G0463

== ENCOUNTER → 2022-02-02 13:48 | Outpatient (CLI) | payer BC, SELFPAY ==
--- NOTE | 2022-02-02 13:54 | MM_ITS ---
PROCEDURE INFORMATION: Exam: MG Right Diagnostic Breast Tomosynthesis Exam date and time: 02/02/2022 1:50 PM Age: 41 years old Clinical indication: Short-term radiographic followup; right breast asymmetry TECHNIQUE: Imaging protocol: Right Diagnostic tomosynthesis and 2D mammography including computer-aided detection (CAD) when performed. Unilateral or bilateral exam. COMPARISON: 1. MG MM DIG SCREENING MAMM BI W/CAD 07/23/2021 3:24 PM 2. MG MM DIG SCREENING MAMM BI W/CAD 07/08/2020 3:00 PM FINDINGS: MAMMOGRAPHY: The breast is heterogeneously dense, which may obscure small masses. There is no stellate mass, architectural distortion or suspicious to suggest malignancy. Broad nodular tissue asymmetry appears less evident on both routine and spot compression views on the current examination. No skin thickening or axillary adenopathy. IMPRESSION: No mammographic evidence of malignancy. Benign appearing tissue asymmetry in the right breast. Annual bilateral mammographic screening is recommended in 6 months unless otherwise clinically indicated. ASSESSMENT: BI-RADS Category 1: Negative
== END ==
LOC: RAD 13:48
PROVIDERS: PCP Family Medicine; Visit Provider Physician Assistant
DX: R92.8 Other abnormal and inconclusive findings on diagnostic imaging of breast (principal)
CPT/HCPCS: 77061; 77065; G0279

== ENCOUNTER 2022-05-18 08:39 | Emergency (ER) | payer BC, SELFPAY ==
[2022-05-18 10:03] VITALS: BP 136/91; PULSE 87; RESP 18; TEMP 36.9; O2SAT 99; BMI 26.3
[2022-05-18 10:03] LABS: UTC Influenza A Antigen Negative (Negative); UTC Influenza B Antigen Negative (Negative)
--- NOTE | 2022-05-18 10:03 | EXP.UTC ---
Discharge Plan Disposition Patient Disposition: Home, Self-Care Condition: Good Prescriptions Prescriptions: New amoxicillin-pot clavulanate 875-125 mg Tablet 1 tab PO Q12H Qty: 20 0RF guaifenesin [Mucinex] 600 mg tablet extended release 12hr 600 mg PO BID PRN (Reason: cough) Qty: 20 0RF prednisone [prednisone] 20 mg tablet 20 mg PO BID 5 Days Qty: 10 0RF No Action methylprednisolone 4 MG tablet 4 mg PO DIRECTED Qty: 21 0RF Rx Instructions: Take as directed on package instructions benzonatate 100 MG capsule 100 mg PO Q8HP PRN (Reason: Cough) Qty: 15 0RF amoxicillin-pot clavulanate 1 EACH tablet 1 tab PO Q12H 10 Days Qty: 20 0RF Referrals Follow up/Referrals: Fredrick May MD [Primary Care Provider] - See instructions Activity Restrictions/Add. Instructions Additional Instructions/Restrictions: Start antibiotic today. Be sure to complete entire prescription even if feeling better Monitor temp. Tylenol every 4 hours as needed and / or ibuprofen every 6 hours as needed ( As long as your primary care physician has told you that it ok to take both. For fever/aches/pains ER if no less than 101 despite Tylenol or Motrin Humidifier/vaporizer or hot steamy shower Mucinex for your cough and chest congestion. Be sure to drink lots of water. *Start steroid today. Helps with inflammation therefore, cough and wheezing. Follow directions on the package. Reviewed side effects. Patient reports taking them before. Follow up IMMEDIATELY for new or worsening of symptoms OR no noticeable improvement over the next 48-72 hours. 911 immediately for any life threatening symptoms such as chest pain or difficulty breathing Clinical Impressions Clinical Impression: Bronchitis Sinusitis Qualifiers: Sinusitis location: unspecified location Chronicity: unspecified Qualified Code(s): J32.9 - Chronic sinusitis, unspecified Stand Alone Forms Stand Alone Forms: Work/School Release Instructions Patient Instructions: Sinusitis, Acute Bronchitis, DI for Sinusitis Discharge ED Provider: Ramona Vinson [facility] General Stated complaint: Cough, BA Time Seen by Provider: 05/18/22 10:03 History of Present Illness Provider Complaint: Patient states that she has been having sinus pain and pressure, scratchy throat, drainage in the back of her throat and feels like it is trying to move into her chest States that she has been sick over a week and has been taking OTC medication but hasnt helped States that today she was still not feeling well so she came in to get it checked Related Data Previous Rx's Medication Instructions Recorded amoxicillin 875 mg-potassium 1 tab PO Q12H 10 days #20 tabs 08/30/21 clavulanate 125 mg tablet benzonatate 100 mg capsule 100 mg PO Q8HP PRN Cough #15 caps 08/30/21 methylprednisolone 4 mg tablet 4 mg PO DIRECTED #21 tabs 08/30/21 amoxicillin 875 mg-potassium 1 tab PO Q12H #20 tabs 05/18/22 clavulanate 125 mg tablet guaifenesin 600 mg tablet, 600 mg PO BID PRN cough #20 tabs 05/18/22 extended release 12 hr (Mucinex) prednisone 20 mg tablet 20 mg PO BID 5 days #10 tabs 05/18/22 Allergies Allergy/AdvReac Type Severity Reaction Status Date / Time No Known Allergies Allergy Verified 05/18/22 10:10 [facility] Social History Smoking Status: Current every day smoker tobacco type: cigarettes packs per day: 1 second hand exposure: Yes alcohol intake: never substance use type: denies use current occupational status: other Travel in the last 8 weeks: None household members: spouse and family housing: house current occupation: [employer] current occupational exposures/hazards: No caffeine: Yes ROS Obtained: Yes All systems reviewed & no additional complaints except as documented and Yes Systems reviewed as appropriate & no additional complaints except as docume
[2022-05-18 10:38] VITALS: BP 136/91; PULSE 87; RESP 18; TEMP 36.9
== END 2022-05-18 10:39 | disposition home or self-care (01) ==
PROVIDERS: Emergency Provider Nurse Practitioner; PCP Family Medicine
DX: J40 Bronchitis, not specified as acute or chronic (principal); J32.9 Chronic sinusitis, unspecified
CPT/HCPCS: 87804; 99212; G0463

== ENCOUNTER 2022-06-20 14:21 | Emergency (ER) | payer BC, SELFPAY ==
[2022-06-20] VITALS (7 sets, daily range): BP systolic 130–159; BP diastolic 79–101; PULSE 102–138; RESP 19–24; TEMP 37.5–38.7; O2SAT 94–97; BMI 26.5
--- NOTE | 2022-06-20 14:39 | XR_ITS ---
PROCEDURE INFORMATION: Exam: XR Chest Exam date and time: 06/20/2022 3:07 PM Age: 41 years old Clinical indication: Fever TECHNIQUE: Imaging protocol: Radiologic exam of the chest. Views: 1 view. COMPARISON: CR Chest 02/17/2019 8:16 PM FINDINGS: Lungs: Atelectatic changes noted within both lung bases. No focal pneumonia or pneumothorax. Bilateral hyperinflation is present. Pleural spaces: There are no pleural effusions present. Heart/Mediastinum: Unremarkable. No cardiomegaly. Bones/joints: Unremarkable. IMPRESSION: 1. Atelectatic changes noted within both lung bases. 2. No focal pneumonia or pneumothorax. 3. Bilateral hyperinflation is present.
--- NOTE | 2022-06-20 14:41 | HMH.EDGENADL ---
Discharge Plan Prescriptions Prescriptions: No Action amoxicillin-pot clavulanate 875-125 mg Tablet 1 tab PO Q12H Qty: 20 0RF guaifenesin [Mucinex] 600 mg tablet extended release 12hr 600 mg PO BID PRN (Reason: cough) Qty: 20 0RF prednisone [prednisone] 20 mg tablet 20 mg PO BID 5 Days Qty: 10 0RF methylprednisolone 4 MG tablet 4 mg PO DIRECTED Qty: 21 0RF Rx Instructions: Take as directed on package instructions benzonatate 100 MG capsule 100 mg PO Q8HP PRN (Reason: Cough) Qty: 15 0RF amoxicillin-pot clavulanate 1 EACH tablet 1 tab PO Q12H 10 Days Qty: 20 0RF Referrals Follow up/Referrals: Fredrick May MD [Primary Care Provider] - See instructions Discharge ED Provider: Gabe Churchill [facility] HPI General Stated complaint: sob, fever, cough, body aches, INIGUEZ Time Seen by Provider: 06/20/22 14:33 History of Present Illness HPI narrative: Patient presents complaining of body aches, cough and shortness of air since Tuesday. She describes symptoms as moderate to severe. Cough been nonproductive in nature. Related Data Previous Rx's Medication Instructions Recorded amoxicillin 875 mg-potassium 1 tab PO Q12H 10 days #20 tabs 08/30/21 clavulanate 125 mg tablet benzonatate 100 mg capsule 100 mg PO Q8HP PRN Cough #15 caps 08/30/21 methylprednisolone 4 mg tablet 4 mg PO DIRECTED #21 tabs 08/30/21 amoxicillin 875 mg-potassium 1 tab PO Q12H #20 tabs 05/18/22 clavulanate 125 mg tablet guaifenesin 600 mg tablet, 600 mg PO BID PRN cough #20 tabs 05/18/22 extended release 12 hr (Mucinex) prednisone 20 mg tablet 20 mg PO BID 5 days #10 tabs 05/18/22 Allergies Allergy/AdvReac Type Severity Reaction Status Date / Time No Known Allergies Allergy Verified 05/18/22 10:10 [facility] Social History Smoking Status: Current every day smoker tobacco type: cigarettes packs per day: 1 second hand exposure: Yes alcohol intake: never substance use type: denies use current occupational status: other Travel in the last 8 weeks: None household members: spouse and family housing: house current occupation: [employer] current occupational exposures/hazards: No caffeine: Yes ROS Obtained: Yes All systems reviewed & no additional complaints except as documented Physical Exam General General appearance: alert and in no apparent distress Head Head exam: atraumatic, normocephalic and normal inspection Eye Eye exam: Present normal appearance, PERRL and EOMI ENT ENT exam: Present normal exam, normal oropharynx, mucous membranes moist, TM's normal bilaterally and normal external ear exam Neck Neck exam: Present normal inspection, full ROM and trachea midline; Absent meningismus or lymphadenopathy Chest Chest inspection: Present normal inspection and symmetric chest wall rise; Absent tenderness Respiratory Respiratory exam: Present other (Tachypnea) Cardiovascular Cardiovascular exam: Present tachycardia Abdominal Exam Abdominal exam: Present soft and normal bowel sounds; Absent distention, tenderness or guarding Extremities Exam Extremities exam: Present normal inspection, full ROM and normal capillary refill; Absent calf tenderness Back Exam Back exam: Present normal inspection; Absent tenderness Neurological Exam Neurological exam: Present alert and oriented X3 Psychiatric Psychiatric exam: Present normal affect and normal mood Skin Skin exam: Present warm, dry and intact; Absent normal color (The skin of the abdominal wall is mottled.) Lymphatic Lymphatic Findings: no adenopathy Medical Decision Making Medical Records Medical records reviewed: Yes I reviewed the patient's medical records. Scout Inquiry Pt receiving controlled substance: No Orders (Tests/Meds): ED MEDICATIONS Generic Name Dose Route Start Last Admin Trade Name Freq PRN Reason Stop Dose Admin Sodium Chloride 1,000 mls @ 999 mls/hr 06/20
[2022-06-20 14:44] LABS: Coronavirus 19, PCR Not Detected (NotDetected); Influenza B, PCR Not Detected (NotDetected)
[2022-06-20 14:54] LABS: Chloride 102 mmol/L (98-107)
[2022-06-20 14:55] LABS: Potassium 3.2 mmoL/L (3.5-5.1); Sodium 133 mmol/L (136-145)
[2022-06-20 14:57] LABS: Alanine Aminotransferase 26 U/L (12-78); Alkaline Phosphatase 154 U/L (38-126); Anion Gap 13.2 mEq/L (5-15); Aspartate Amino Transferase 36 U/L (14-36); Bilirubin,Total 0.4 mg/dl (0.2-1.3); Blood Urea Nitrogen 12 mg/dl (7-17); Carbon Dioxide 21 mmol/L (22.0-30.0); Creatinine Clearance Estimated 114 mL/min (50-200); Estimated Glomerular Filt Rate 92 ml/min (>60); GFR (African American) 112 ML/MIN (>60); Lactic Acid 1.7 mmol/L (0.7-2.1)
[2022-06-20 14:58] LABS: Albumin Level 4.2 g/dl (3.5-5.0); Albumin/Globulin Ratio 1.4 (1.1-1.8); Calcium 8.5 mg/dl (8.4-10.2); Glucose 193 mg/dl (74-100); Total Protein,Serum 7.2 g/dl (6.3-8.2)
--- NOTE | 2022-06-20 15:19 | PC.NURSE ---
Pt rang call patterson to go to the restroom. she states she is sweating now and is starting to feel better. pt ambulated to restroom without assistance and was given cup for a urine sample.
[2022-06-20 15:34] LABS: Influenza A, PCR Detected (NotDetected)
--- NOTE | 2022-06-20 15:41 | PC.NURSE ---
Urine sample sent to lab
[2022-06-20 15:46] LABS: Microscopic, Urine URINE MICROSCOPIC (MICROSCOPIC)
[2022-06-20 15:47] LABS: Appearance,Urine SL CLOUDY (Clear); Blood, Urine 3+ (Negative); Color,Urine YELLOW (Yellow); Glucose,Urine (UA) Negative (Negative); Ketones,Urine 1+ (Negative); Leukocyte Esterase,Urine Negative (Negative); Nitrate,Urine Negative (Negative); Protein,Urine TRACE (Negative); Urobilinogen,Urine 0.2 EU/dl (0.2)
[2022-06-20 16:20] LABS: Bilirubin,Urine Negative (Negative)
[2022-06-20 16:32] LABS: Basophils % 0.5 % (0.1-2.0); Eosinophils % 0.2 % (0.1-12.0); Hematocrit 52.1 % (37.0-47.0); Hemoglobin 17.5 g/dL (12.2-16.2); Lymphocytes # 0.4 K/mm3 (0.7-4.5); Lymphocytes % 5.5 % (10-50); Mean Corpuscular HGB Conc 33.6 g/dL (31.8-35.4); Mean Corpuscular Volume 86.1 fl (81-99); Mean Platelet Volume 9.8 fl (7.4-10.4); Monocytes # 0.3 K/mm3 (0.1-1.0); Monocytes % 4.8 % (1.7-9.3); Neutrophils # 6.3 K/mm3 (1.8-7.8); Platelet Count 219 K/mm3 (142-424); Red Blood Count 6.05 M/mm3 (4.20-5.40); Red Cell Distribution Width 13.4 % (11.5-17.5); White Blood Count 7.1 K/mm3 (4.8-10.8)
[2022-06-20 16:36] LABS: MANUAL DIFFERENTIAL MANUAL DIFFERENTIAL (MANUAL DIFF)
[2022-06-20 17:53] LABS: Lymphocytes % 9 % (10-50); Neutrophils % 83 % (42-76); Platelet Estimate Normal; RBC Morphology Normal; Total Cells Counted 100
[2022-06-20 19:08] LABS: Bacteria,Urine 1+ /lpf; WBC,Urine Occasional #/hpf (0-3)
== END 2022-06-20 17:27 | disposition home or self-care (01) ==
PROVIDERS: Emergency Provider Emergency Medicine; PCP Family Medicine
DX: J10.1 Influenza due to other identified influenza virus with other respiratory manifestations (principal); R06.02 Shortness of breath; R50.9 Fever, unspecified; R00.0 Tachycardia, unspecified; R51.9 Headache, unspecified; M79.10 Myalgia, unspecified site; Z20.822 Contact with and (suspected) exposure to COVID-19; I10 Essential (primary) hypertension; E55.9 Vitamin D deficiency, unspecified; Z79.52 Long term (current) use of systemic steroids; Z79.899 Other long term (current) drug therapy; Z82.49 Family history of ischemic heart disease and other diseases of the circulatory system; Z83.49 Family history of other endocrine, nutritional and metabolic diseases; Z83.3 Family history of diabetes mellitus; Z80.9 Family history of malignant neoplasm, unspecified
CPT/HCPCS: 71045; 80053; 81001; 83605; 85007; 85025; 87040; 99283; C9803; U0003; U0005

== ENCOUNTER → 2022-06-25 17:06 | Outpatient (CLI) | payer BC, SELFPAY ==
--- NOTE | 2022-06-25 17:16 | XR_ITS ---
PROCEDURE INFORMATION: Exam: XR Chest Exam date and time: 06/25/2022 5:35 PM Age: 41 years old Clinical indication: Cough and fever and shortness of breath; Patient HX: PT tested positive for flu, cough, C/O SOA. Smoker TECHNIQUE: Imaging protocol: Radiologic exam of the chest. Views: 1 view. Portable AP exam 5:37 p.m. COMPARISON: CR XR CHEST PORTABLE 06/20/2022 3:07 PM FINDINGS: Lungs: There is patchy bilateral pulmonary airspace disease, with dense lobulated consolidations in the central and lower left lung, milder in the right upper and lower lung. Pleural spaces: Unremarkable. No significant pleural effusion. No pneumothorax. Heart/Mediastinum: The cardiac silhouette is normal. Bones/joints: There is no evidence of acute fracture. IMPRESSION: 1. Patchy bilateral pulmonary airspace disease, probably multifocal bilateral consolidative pneumonia. 2. Recommend follow-up to resolution after treatment, to exclude underlying malignancy in this smoker.
[2022-06-25 18:16] LABS: Basophils # 0.1 K/mm3 (0-0.2); Basophils % 0.6 % (0.1-2.0); Eosinophils % 0.2 % (0.1-12.0); Hematocrit 38.4 % (37.0-47.0); Hemoglobin 12.8 g/dL (12.2-16.2); Lymphocytes # 1.1 K/mm3 (0.7-4.5); Lymphocytes % 10.3 % (10-50); Mean Corpuscular HGB Conc 33.2 g/dL (31.8-35.4); Mean Corpuscular Hemoglobin 28.9 pg (27.0-31.2); Mean Corpuscular Volume 86.9 fl (81-99); Mean Platelet Volume 9.3 fl (7.4-10.4); Monocytes # 0.5 K/mm3 (0.1-1.0); Monocytes % 4.2 % (1.7-9.3); Neutrophils # 9.2 K/mm3 (1.8-7.8); Neutrophils % 84.8 % (37.0-80.0); Platelet Count 525 K/mm3 (142-424); Red Blood Count 4.42 M/mm3 (4.20-5.40); Red Cell Distribution Width 14.1 % (11.5-17.5); White Blood Count 10.9 K/mm3 (4.8-10.8)
[2022-06-25 18:44] LABS: Alanine Aminotransferase 22 U/L (12-78); Albumin Level 3.6 g/dl (3.5-5.0); Albumin/Globulin Ratio 0.9 (1.1-1.8); Alkaline Phosphatase 203 U/L (38-126); Anion Gap 14.8 mEq/L (5-15); Aspartate Amino Transferase 33 U/L (14-36); Bilirubin,Total 0.6 mg/dl (0.2-1.3); Blood Urea Nitrogen 17 mg/dl (7-17); Calcium 9.4 mg/dl (8.4-10.2); Carbon Dioxide 26 mmol/L (22.0-30.0); Chloride 104 mmol/L (98-107); Estimated Glomerular Filt Rate 79 ml/min (>60); GFR (African American) 96 ML/MIN (>60); Globulin 3.8 g/dL (1.3-3.2); Glucose 125 mg/dl (74-100); Sodium 142 mmol/L (136-145); Total Protein,Serum 7.4 g/dl (6.3-8.2)
[2022-06-25 18:53] LABS: Potassium 2.8 mmoL/L (3.5-5.1)
--- NOTE | 2022-06-25 20:07 | PC.NURSE ---
PER DR. SANTOS I CALLED PATIENT TO NOTIFY HER OF CRITICAL POTASSIUM AND REPORTED TO HER THAT MD ADVISED THAT SHE COME TO THE ED. PATIENT VERBALIZED UNDERSTANDING.
== END ==
PROVIDERS: PCP Physician Assistant; Visit Provider Physician Assistant
DX: Z20.822 Contact with and (suspected) exposure to COVID-19 (principal); R06.02 Shortness of breath; R50.9 Fever, unspecified; J09.X2 Influenza due to identified novel influenza A virus with other respiratory manifestations
CPT/HCPCS: 36415; 71045; 80053; 85025

== ENCOUNTER 2022-06-25 20:53 | Inpatient (IN) | payer BC, SELFPAY ==
[2022-06-25 21:49] VITALS: BP 142/88; PULSE 94; RESP 18; TEMP 36.9; O2SAT 99; BMI 24.7
[2022-06-25 22:00] VITALS: BP 123/85; PULSE 93; O2SAT 94
[2022-06-25 22:08] LABS: Alanine Aminotransferase 28 U/L (12-78); Albumin Level 3.6 g/dl (3.5-5.0); Alkaline Phosphatase 181 U/L (38-126); Aspartate Amino Transferase 35 U/L (14-36); Bilirubin,Total 0.6 mg/dl (0.2-1.3); Blood Urea Nitrogen 17 mg/dl (7-17); Calcium 9.1 mg/dl (8.4-10.2); Carbon Dioxide 25 mmol/L (22.0-30.0); Chloride 104 mmol/L (98-107); Creatinine Clearance Estimated 106 mL/min (50-200); Estimated Glomerular Filt Rate 92 ml/min (>60); GFR (African American) 112 ML/MIN (>60); Globulin 3.6 g/dL (1.3-3.2); Glucose 147 mg/dl (74-100); Sodium 141 mmol/L (136-145); Total Protein,Serum 7.2 g/dl (6.3-8.2)
[2022-06-25 22:09] LABS: Basophils # 0.1 K/mm3 (0-0.2); Basophils % 0.5 % (0.1-2.0); Eosinophils % 0.2 % (0.1-12.0); Hematocrit 37.2 % (37.0-47.0); Hemoglobin 12.4 g/dL (12.2-16.2); Lymphocytes # 0.9 K/mm3 (0.7-4.5); Lymphocytes % 7.1 % (10-50); Mean Corpuscular HGB Conc 33.3 g/dL (31.8-35.4); Mean Corpuscular Hemoglobin 28.9 pg (27.0-31.2); Mean Corpuscular Volume 86.8 fl (81-99); Mean Platelet Volume 8.9 fl (7.4-10.4); Monocytes # 0.5 K/mm3 (0.1-1.0); Monocytes % 3.6 % (1.7-9.3); Neutrophils # 11.6 K/mm3 (1.8-7.8); Neutrophils % 88.5 % (37.0-80.0); Platelet Count 545 K/mm3 (142-424); Red Blood Count 4.28 M/mm3 (4.20-5.40); Red Cell Distribution Width 14.1 % (11.5-17.5); White Blood Count 13.1 K/mm3 (4.8-10.8)
[2022-06-25 22:14] LABS: Anion Gap 14.4 mEq/L (5-15)
[2022-06-25 22:15] LABS: Potassium 2.4 mmoL/L (3.5-5.1)
[2022-06-25 22:19] LABS: MANUAL DIFFERENTIAL MANUAL DIFFERENTIAL (MANUAL DIFF)
[2022-06-25 22:30] VITALS: BP 129/87; PULSE 91; O2SAT 93
[2022-06-25 22:44] LABS: Lymphocytes % 10 % (10-50); Monocytes % 1 % (2-9); Neutrophils % 89 % (42-76); Total Cells Counted 100
[2022-06-25 22:45] LABS: Platelet Estimate Slight Increase; RBC Morphology Normal
[2022-06-25 23:00] VITALS: BP 118/86; PULSE 89; O2SAT 94
[2022-06-25 23:30] VITALS: BP 130/85; PULSE 84; O2SAT 96
[2022-06-26] VITALS (12 sets, daily range): BP systolic 120–163; BP diastolic 75–96; PULSE 77–106; RESP 18–28; TEMP 36.5–37.2; O2SAT 90–98; BMI 24.6
--- NOTE | 2022-06-26 01:54 | PC.NURSE ---
paged Dr. Pierre
--- NOTE | 2022-06-26 01:55 | HMH.EDRECH ---
Discharge Plan Disposition Patient Disposition: Admitted As Inpatient Chief Complaint: Recheck/Abnormal Lab/Rx Prescriptions Prescriptions: No Action amoxicillin-pot clavulanate 875-125 mg Tablet 1 tab PO Q12H Qty: 20 0RF guaifenesin [Mucinex] 600 mg tablet extended release 12hr 600 mg PO BID PRN (Reason: cough) Qty: 20 0RF prednisone [prednisone] 20 mg tablet 20 mg PO BID 5 Days Qty: 10 0RF methylprednisolone 4 MG tablet 4 mg PO DIRECTED Qty: 21 0RF Rx Instructions: Take as directed on package instructions benzonatate 100 MG capsule 100 mg PO Q8HP PRN (Reason: Cough) Qty: 15 0RF amoxicillin-pot clavulanate 1 EACH tablet 1 tab PO Q12H 10 Days Qty: 20 0RF Referrals Follow up/Referrals: Fredrick May MD [Primary Care Provider] - See instructions Clinical Impressions Clinical Impression: CAP (community acquired pneumonia), SIRS (systemic inflammatory response syndrome), Acute hypokalemia Discharge ED Provider: Nick Farrell Recheck HPI General Chief Complaint: Recheck/Abnormal Lab/Rx Stated Complaint: Labs called back in Time Seen by Provider: 06/26/22 01:55 Mode of Arrival: Ambulatory Source of Information: Patient and Medical Record Limitations: No Limitations Description of Symptoms (Recalled from ER Triage Doc. by RN): pt to ed states she was called by her pcp to come in for abnormal labs. History of Present Illness HPI narrative: pt with dx of flu onsunday but no tamiflu and started on tuesday but has progressive sx and has abn labs and and abn cxr - MD complaint: abnormal lab Initial visit (ago): day(s) Returns today for: called because of abnormal lab/test Context: called for abnormal lab result Associated symptoms: shortness of breath Related Data Previous Rx's Medication Instructions Recorded amoxicillin 875 mg-potassium 1 tab PO Q12H 10 days #20 tabs 08/30/21 clavulanate 125 mg tablet benzonatate 100 mg capsule 100 mg PO Q8HP PRN Cough #15 caps 08/30/21 methylprednisolone 4 mg tablet 4 mg PO DIRECTED #21 tabs 08/30/21 amoxicillin 875 mg-potassium 1 tab PO Q12H #20 tabs 05/18/22 clavulanate 125 mg tablet guaifenesin 600 mg tablet, 600 mg PO BID PRN cough #20 tabs 05/18/22 extended release 12 hr (Mucinex) prednisone 20 mg tablet 20 mg PO BID 5 days #10 tabs 05/18/22 Allergies Allergy/AdvReac Type Severity Reaction Status Date / Time No Known Allergies Allergy Verified 05/18/22 10:10 [facility] Disclaimer: The information contained in this section may have been updated after the patient was seen, as this information can be updated by other users. Social History Smoking Status: Current every day smoker tobacco type: cigarettes packs per day: 1 second hand exposure: Yes alcohol intake: never substance use type: denies use current occupational status: other Travel in the last 8 weeks: None household members: spouse and family housing: house current occupation: [employer] current occupational exposures/hazards: No caffeine: Yes ROS Obtained: Yes All systems reviewed & no additional complaints except as documented Physical Exam General General appearance: alert Head Head exam: normocephalic Eye Eye exam: Present PERRL and EOMI ENT ENT exam: Present mucous membranes moist Neck Neck exam: Absent trachea midline Respiratory Respiratory exam: Present wheezes and other (rhonchi ) Cardiovascular Cardiovascular exam: Present regular rate Abdominal Exam Abdominal exam: Present soft Extremities Exam Extremities exam: Absent calf tenderness Neurological Exam Neurological exam: Present alert, oriented X3 and CN II-XII intact Psychiatric Psychiatric exam: Present normal affect Skin Skin exam: Absent rash Medical Decision Making Medical Records Medical records reviewed: Yes I reviewed the patient's medical records. Scout Inquiry Pt receiving controlled s
[2022-06-26 02:43] LABS: Coronavirus 19, PCR Not Detected (NotDetected); Influenza A, PCR Not Detected (NotDetected); Influenza B, PCR Not Detected (NotDetected)
[2022-06-26 02:52] LABS: Lactic Acid 1.1 mmol/L (0.7-2.1)
[2022-06-26 03:50] LABS: Mycoplasma Pneumo IGM (Rapid) Non-Reactive (Non-Reactiv)
--- NOTE | 2022-06-26 05:22 | PC.NURSE ---
NO ACUTE CHANGES SINCE ARRIVING TO THE FLOOR. PT GETS VERY SORT OF BREATH WITH ACTIVITY. NO C/O CHEST PAIN OR BODY PAIN. REMAINS AFEBRILE. CALL GARCIA WITHIN REACH.
[2022-06-26 08:44] LABS: Basophils % 0.7 % (0.1-2.0); Eosinophils % 0.1 % (0.1-12.0); Hematocrit 35.7 % (37.0-47.0); Hemoglobin 11.8 g/dL (12.2-16.2); Lymphocytes # 0.7 K/mm3 (0.7-4.5); Lymphocytes % 12.9 % (10-50); Mean Corpuscular Hemoglobin 28.5 pg (27.0-31.2); Mean Corpuscular Volume 86.4 fl (81-99); Mean Platelet Volume 8.5 fl (7.4-10.4); Monocytes # 0.2 K/mm3 (0.1-1.0); Monocytes % 3.2 % (1.7-9.3); Neutrophils # 4.7 K/mm3 (1.8-7.8); Neutrophils % 83.2 % (37.0-80.0); Platelet Count 500 K/mm3 (142-424); Red Blood Count 4.13 M/mm3 (4.20-5.40); Red Cell Distribution Width 14.4 % (11.5-17.5); White Blood Count 5.7 K/mm3 (4.8-10.8)
[2022-06-26 08:53] LABS: Chloride 108 mmol/L (98-107); Sodium 141 mmol/L (136-145)
[2022-06-26 08:56] LABS: Anion Gap 12.8 mEq/L (5-15); Blood Urea Nitrogen 15 mg/dl (7-17); Calcium 8.3 mg/dl (8.4-10.2); Carbon Dioxide 23 mmol/L (22.0-30.0); Creatinine Clearance Estimated 123 mL/min (50-200); Estimated Glomerular Filt Rate 110 ml/min (>60); GFR (African American) 133 ML/MIN (>60); Glucose 185 mg/dl (74-100)
[2022-06-26 08:57] LABS: Magnesium 1.9 mg/dl (1.6-2.3)
--- NOTE | 2022-06-26 09:00 | EXP.HP ---
History of Present Illness *Admission Date: 06/26/22 *Reason for visit:: Shortness of breath *History of present illness: Mrs. Alegria is 41 year old female patient of [facility] who began feeling sick around 10 days ago. She was diagnosed with influenza put was unable to take Tamiflu because it was not available at pharmacies. She was treated symptomatically but did not see much improvement at all. She had follow up testing yesterday which showed bilateral pneumonia and hypokalemia so she was directed to the ER for further evaluation. Patient states she had not received a flu vaccination. She had unknown sick contacts. [facility] Disclaimer: The information contained in this section may have been updated after the patient was seen, as this information can be updated by other users. Medical History (Updated 06/26/22 @ 15:38 by Fredrick May MD) Carpal tunnel syndrome HTN (hypertension) Vitamin D deficiency Surgical History H/O knee surgery History of ankle surgery History of cholecystectomy Hx of tubal ligation Family History (Updated 06/26/22 @ 04:14 by Hollie Berg RN) Family history of cancer Breast cancer Family history of hypertension Family history of diabetes mellitus type II Family history of myocardial infarction Family history of hyperlipidemia Social History (Updated 06/26/22 @ 04:14 by Hollie Berg RN) Smoking Status: Current every day smoker tobacco type: cigarettes packs per day: 1 second hand exposure: Yes alcohol intake: never substance use type: denies use current occupational status: employed Travel in the last 8 weeks: None household members: spouse and family housing: house current occupation: [email or web address] current occupational exposures/hazards: No caffeine: Yes Review of Systems Constitutional Constitutional: Denies chills and Reports fever(s) (subjective) Eyes Eyes: Denies blurry vision ENT Ears, Nose, Mouth, and Throat: Denies abnormal hearing and Denies dizziness *Cardiovascular Cardiovascular: Denies chest pain *Respiratory Respiratory: Denies hemoptysis *Gastrointestinal Gastrointestinal: Denies change in stool character *Genitourinary Genitourinary: Denies difficulty voiding *Musculoskeletal Musculoskeletal: Denies muscle cramps Integumentary/Breasts Skin/Breast: Denies rash *Neurologic Neurologic: Denies abnormal hearing and Denies dizziness Meds Home Medications and Allergies Home Medications Medication Instructions Recorded Confirmed Type methylprednisolone 4 mg tablet 4 mg PO DIRECTED #21 tabs 08/30/21 06/26/22 Rx albuterol sulfate 90 mcg/actuation 2 puff inhalation Q2HP PRN 06/26/22 06/26/22 History aerosol inhaler Shortness Of Breath budesonide-formoterol HFA 160 2 puff inhalation BID Breathing 06/26/22 06/26/22 History mcg-4.5 mcg/actuation aerosol problems inhaler (Symbicort) promethazine-DM 6.25 mg-15 mg/5 mL 5 ml PO QIDP PRN Cough 06/26/22 06/26/22 History oral syrup New Prescriptions to Start Prescriptions: Allergies Allergy/AdvReac Type Severity Reaction Status Date / Time No Known Allergies Allergy Verified 05/18/22 10:10 Exam Data for Last 24 hours Vital signs and Labs for Last 24 Hours: Temp Pulse Resp BP Pulse Ox 98.8 F 85 18 120/75 91 L 06/26/22 04:00 06/26/22 06:07 06/26/22 04:00 06/26/22 04:00 06/26/22 06:07 Laboratory Results - last 24 hr 06/25/22 21:47: WBC 13.1 H, RBC 4.28, Hgb 12.4, Hct 37.2, MCV 86.8, MCH 28.9, MCHC 33.3, RDW 14.1, Plt Count 545 H, MPV 8.9, Neut % (Auto) 88.5 H, Lymph % (Auto) 7.1 L, [place] % (Auto) 3.6, Eos % (Auto) 0.2, Baso % (Auto) 0.5, Neut # (Auto) 11.6 H, Lymph # (Auto) 0.9, [place] # (Auto) 0.5, Eos # (Auto) 0.0, Baso # (Auto) 0.1, Total Counted 100, Neutrophils % (Manual) 89 H, Lymphocytes % (Manual) 10, Monocytes % (Manual) 1 L, Platelet Estimate Slight increase, RBC Morphology Natalia
[2022-06-26 09:01] LABS: Potassium 2.8 mmoL/L (3.5-5.1)
--- NOTE | 2022-06-26 14:14 | HMH.PHAINT1 ---
Pharmacy Intervention Comments: MEDICATION RECONCILIATION COMPLETED ON PATIENT USING EXTERNAL FILL HISTORY FROM PHARMACY. -OSMEL GARRETT, CASSIED
--- NOTE | 2022-06-26 18:39 | PC.NURSE ---
pt has scattered crackles. denies being increasingly SOA. paged . awaiting call back
[2022-06-27] VITALS (13 sets, daily range): BP systolic 134–151; BP diastolic 77–95; PULSE 62–95; RESP 17–20; TEMP 36.5–36.9; O2SAT 92–98; BMI 28.3
--- NOTE | 2022-06-27 06:11 | PC.NURSE ---
NO ACUTE CHANGES SINCE PREVIOUS ASSESSMENT. PT HAS RESTED WELL THIS SHIFT. LUNG SOUNDS HAVE FINE CRACKLES THROUGHOUT. REMAINS ON 2L NASAL CANNULA. TOLERATING WELL. PT STATES SHE IS FEELING A BIT BETTER. ONLY C/O SHORTNESS OF BREATH WITH EXERTION. NO C/O PAIN THIS SHIFT. CALL GARCIA WITHIN REACH. AMBULATING TO THE BATHROOM INDEPENDENTLY.
--- NOTE | 2022-06-27 07:13 | EXP.ACUTE.PN ---
Subjective *Date: 06/27/22 *Time: 07:13 Interval history: Patient feels just a little better today, still SOB at rest, which gets worse with any exertion. Medical Exam Vital signs and Labs for Last 24 Hours: Vital Signs Temp Pulse Pulse Resp BP Pulse Ox FiO2 06/27/22 06:13 91 H 06/27/22 06:13 75 06/27/22 06:13 95 06/27/22 03:49 98.1 F 74 18 134/79 97 06/26/22 23:53 98.1 F 94 H 20 137/82 95 06/27/22 00:14 88 06/27/22 00:13 89 06/26/22 19:49 98.5 F 89 26 H 143/75 H 96 06/26/22 16:00 97.9 F 89 24 144/96 H 97 06/26/22 18:27 28 06/26/22 18:26 93 H 06/26/22 18:26 93 H 06/26/22 12:00 97.7 F 106 H 28 H 163/95 H 91 L 06/26/22 11:47 92 H 06/26/22 11:47 95 H 06/26/22 11:47 90 L 06/26/22 09:34 84 18 06/26/22 08:00 98.5 F 92 H 26 H 136/82 90 L Intake and Output 06/26/22 06/26/22 06/27/22 15:59 23:59 07:59 Intake Total 480 / 819 120 / 819 2297 / 2297 Balance 480 / 819 120 / 819 2297 / 2297 Intake: Intake, Oral Amount 480 / 600 120 / 600 Intake, Total IV Amount 2297 / 2297 0.9 % Sodium Chloride 1,000 ml 2297 / 2297 @ 125 mls/hr IV .Q8H [facility] Rx#: [id number] Other: Number of Bowel Movements 1 Weight 160 lb 2 oz Patient Weight 06/27/22 23:59 Weight 160 lb 2 oz Laboratory Results - last 24 hr 06/26/22 08:32: WBC 5.7 D, RBC 4.13 L, Hgb 11.8 L, Hct 35.7 L, MCV 86.4, MCH 28.5, MCHC 33.0, RDW 14.4, Plt Count 500 H, MPV 8.5, Neut % (Auto) 83.2 H, Lymph % (Auto) 12.9, [place] % (Auto) 3.2, Eos % (Auto) 0.1, Baso % (Auto) 0.7, Neut # (Auto) 4.7, Lymph # (Auto) 0.7, [place] # (Auto) 0.2, Eos # (Auto) 0.0, Baso # (Auto) 0.0 06/26/22 08:32: Sodium 141, Potassium 2.8 L*, Chloride 108 H, Carbon Dioxide 23, Anion Gap 12.8, BUN 15, Creatinine 0.60, Estimated Creat Clear 123, Estimated GFR 110, Est GFR ( Amer) 133, Glucose 185 H D, Calcium 8.3 L, Magnesium 1.9 I & O for Labs for Last 24 Hours: Intake & Output 06/24/22 06/25/22 06/26/22 06/27/22 23:59 23:59 23:59 23:59 Intake Total 819 / 819 2297 / 2297 Balance 819 / 819 2297 / 2297 Weight 140 lb 138 lb 14.259 oz 160 lb 2 oz Microbiology Reports for the Last 24 Hours: Microbiology 06/26/22 09:30 Sputum - Expectorated Sputum Gram Stain - Final Constitutional: Present no acute distress Respiratory: Present crackles (bilateral) Cardiac: Present Reg Rate and Rhythm GI: Present normal bowel sounds; Absent tenderness Extremities: Present normal inspection and full ROM Skin: Present intact; Absent erythema Neuro: Present Grossly Intact and moves all extremities Assessment and Plan *Assessment and plan (1) CAP (community acquired pneumonia): Status: Acute Category: Medical Code(s): J18.9 - Pneumonia, unspecified organism (2) Bilateral pneumonia: Status: Acute Category: Medical Code(s): J18.9 - Pneumonia, unspecified organism (3) SIRS (systemic inflammatory response syndrome): Status: Acute Category: Medical Code(s): R65.10 - Systemic inflammatory response syndrome (SIRS) of non-infectious origin without acute organ dysfunction (4) Influenza A: Status: Acute Category: Medical Code(s): J10.1 - Influenza due to other identified influenza virus with other respiratory manifestations (5) Acute hypokalemia: Status: Acute Category: Medical Code(s): E87.6 - Hypokalemia Plan AM labs pending, continue current treatment.
[2022-06-27 09:18] LABS: Basophils # 0.1 K/mm3 (0-0.2); Basophils % 0.4 % (0.1-2.0); Eosinophils % 0.1 % (0.1-12.0); Hematocrit 34.5 % (37.0-47.0); Hemoglobin 11.2 g/dL (12.2-16.2); Lymphocytes # 1.2 K/mm3 (0.7-4.5); Lymphocytes % 9.6 % (10-50); Mean Corpuscular HGB Conc 32.5 g/dL (31.8-35.4); Mean Corpuscular Hemoglobin 28.5 pg (27.0-31.2); Mean Corpuscular Volume 87.8 fl (81-99); Mean Platelet Volume 9.3 fl (7.4-10.4); Monocytes # 0.6 K/mm3 (0.1-1.0); Monocytes % 4.7 % (1.7-9.3); Neutrophils # 10.2 K/mm3 (1.8-7.8); Neutrophils % 85.2 % (37.0-80.0); Platelet Count 542 K/mm3 (142-424); Red Blood Count 3.93 M/mm3 (4.20-5.40); Red Cell Distribution Width 14.2 % (11.5-17.5)
[2022-06-27 09:20] LABS: MANUAL DIFFERENTIAL MANUAL DIFFERENTIAL (MANUAL DIFF)
[2022-06-27 09:21] LABS: Chloride 111 mmol/L (98-107)
[2022-06-27 09:22] LABS: Potassium 3.5 mmoL/L (3.5-5.1); Sodium 137 mmol/L (136-145)
[2022-06-27 09:25] LABS: Anion Gap 8.5 mEq/L (5-15); Blood Urea Nitrogen 16 mg/dl (7-17); Calcium 8.6 mg/dl (8.4-10.2); Carbon Dioxide 21 mmol/L (22.0-30.0); Creatinine Clearance Estimated 141 mL/min (50-200); Estimated Glomerular Filt Rate 110 ml/min (>60); GFR (African American) 133 ML/MIN (>60); Glucose 225 mg/dl (74-100)
[2022-06-27 09:52] LABS: Lymphocytes % 10 % (10-50); Monocytes % 10 % (2-9); Neutrophils % 80 % (42-76); Platelet Estimate Slight Increase; RBC Morphology Normal; Total Cells Counted 100
--- NOTE | 2022-06-27 18:50 | PC.NURSE ---
pt was able to ambulate in ron today without issue. oxygen saturation dropped to 89% but that was the lowest during the walk.
[2022-06-28 03:58] VITALS: BP 136/88; PULSE 80; RESP 18; TEMP 36.9; O2SAT 93
[2022-06-28 04:00] VITALS: BMI 28.9
--- NOTE | 2022-06-28 05:18 | PC.NURSE ---
NO ACUTE CHANGES SINCE PREVIOUS ASSESSMENT. LUNGS HAVE FINE CRACKLES SCATTERED THROUGHOUT. REMAINS ON ROOM AIR AND IS TOLERATING WELL. PT HAS AMBULATED IN THE NOBLE THIS SHIFT. NO C/O PAIN, SOB, OR N/V/D. PT STATES THAT SHE IS FEELING BETTER. STATES THAT HER SHORTNESS OF BREATH WITH ACTIVITY IS LESS THAT YESTERDAY. CALL GARCIA WITHIN REACH.
[2022-06-28 06:50] VITALS: PULSE 61; PULSE 63; O2SAT 92
[2022-06-28 08:00] VITALS: BP 152/91; PULSE 81; RESP 16; TEMP 36.7; O2SAT 95
--- NOTE | 2022-06-28 08:16 | EXP.PN ---
Subjective *Date: 06/28/22 *Time: 09:08 Interval history: Patient states she is better. Breathing is better. She remains on room air with adequate O2 sats. She states she slept better last night than she has in a while. She is eating a little but remains somewhat nauseated at times. She is drinking fluids well and voiding QS. She did walk in the ron. She admits to being tired after ambulation. Potassium is normalized. Renal function is normal. White count is elevated. Possibly due to steroids. Exam Data for Last 24 hours Vital signs and Labs for Last 24 Hours: Temp Pulse Resp BP Pulse Ox FiO2 98.4 F 63 18 136/88 92 L 28 06/28/22 03:58 06/28/22 06:50 06/28/22 03:58 06/28/22 03:58 06/28/22 06:50 06/26/22 18:27 Laboratory Results - last 24 hr 06/27/22 08:54: WBC 12.0 H D, RBC 3.93 L, Hgb 11.2 L, Hct 34.5 L, MCV 87.8, MCH 28.5, MCHC 32.5, RDW 14.2, Plt Count 542 H, MPV 9.3, Neut % (Auto) 85.2 H, Lymph % (Auto) 9.6 L, [place] % (Auto) 4.7, Eos % (Auto) 0.1, Baso % (Auto) 0.4, Neut # (Auto) 10.2 H, Lymph # (Auto) 1.2, [place] # (Auto) 0.6, Eos # (Auto) 0.0, Baso # (Auto) 0.1, Total Counted 100, Neutrophils % (Manual) 80 H, Lymphocytes % (Manual) 10, Monocytes % (Manual) 10 H, Platelet Estimate Slight increase, RBC Morphology Normal 06/27/22 08:54: Sodium 137, Potassium 3.5 D, Chloride 111 H, Carbon Dioxide 21 L, Anion Gap 8.5, BUN 16, Creatinine 0.60, Estimated Creat Clear 141, Estimated GFR 110, Est GFR ( Amer) 133, Glucose 225 H, Calcium 8.6 I & O for Last 24 hours: Intake & Output 06/25/22 06/26/22 06/27/22 06/28/22 11:59 11:59 11:59 11:59 Intake Total 459 / 459 3017 / 3017 1524 / 1524 Output Total 0 / 0 0 / 0 Balance 459 / 459 3017 / 3017 1524 / 1524 Weight 138 lb 14.259 oz 160 lb 2 oz 163 lb 2 oz Microbiology Reports for the Last 24 Hours: Microbiology 06/26/22 02:00 Blood Blood Culture - Preliminary NO GROWTH AFTER 48 HOURS 06/26/22 02:00 Blood Blood Culture - Preliminary NO GROWTH AFTER 48 HOURS 06/26/22 09:30 Sputum - Expectorated Sputum Gram Stain - Final 06/26/22 09:30 Sputum - Expectorated Sputum Sputum Culture - Preliminary Constitutional Constitutional: no acute distress Comments: Sitting up in the bed and appears comfortable. *Routine Respiratory Exam Respiratory: Present wheezes (Scattered throughout) and crackles (Scattered throughout anteriorly and posteriorly) *Routine Cardiovascular Exam Cardiovascular: Present RRR *Routine Abdominal Exam Abdominal: Present soft and normoactive bowel sounds; Absent tenderness *Routine Extremities Exam Extremities: Present pulses intact; Absent edema or calf tenderness *Routine Neurological Exam Neurological: Present alert and oriented X3 Assessment and Plan *Assessment and plan (1) CAP (community acquired pneumonia): Status: Acute Category: Medical Code(s): J18.9 - Pneumonia, unspecified organism (2) Bilateral pneumonia: Status: Acute Category: Medical Code(s): J18.9 - Pneumonia, unspecified organism (3) SIRS (systemic inflammatory response syndrome): Status: Acute Category: Medical Code(s): R65.10 - Systemic inflammatory response syndrome (SIRS) of non-infectious origin without acute organ dysfunction (4) Influenza A: Status: Acute Category: Medical Code(s): J10.1 - Influenza due to other identified influenza virus with other respiratory manifestations (5) Acute hypokalemia: Status: Acute Category: Medical Code(s): E87.6 - Hypokalemia Plan Patient is improving. Encourage ambulation while watching O2 sats. Potassium has normalized. Will saline lock IV. Encourage p.o. fluids. Dr. May entry - OK for discharge home today.
--- NOTE | 2022-06-28 10:27 | HMH.PHAINT1 ---
Pharmacy Intervention Comments: DISCHARGE MEDICATION COUNSELING PROVIDED. DISCUSSED SHORT-COURSE LEVAQUIN THERAPY. TAKE DAILY, RECOMMEND TAKING WITH FOOD, MAY CAUSE UPSET STOMACH, N/V/D, RARE RISK OF TENDON RUPTURE BUT ONLY IN OLDER ADULTS ALSO ON STEROID, TAKE IT SLOW WHEN GETTING UP. PATIENT VERBALIZED NO QUESTIONS AT THIS TIME.
--- NOTE | 2022-06-29 13:25 | CARE MANAGER ---
CM spoke with patient to discuss post discharge status. Patient states that she is doing well, and was able to greens picker abx prescription from [facility]. She is aware of f/u appt with Dr. May.
--- NOTE | 2022-06-30 09:03 | EXP.DC.SUM ---
General Admission date:: 06/26/22 Discharge date: 06/28/22 HPI HPI HPI: Mrs. Alegria is 41 year old female patient of [facility] who began feeling sick around 10 days ago. She was diagnosed with influenza put was unable to take Tamiflu because it was not available at pharmacies. She was treated symptomatically but did not see much improvement at all. She had follow up testing yesterday which showed bilateral pneumonia and hypokalemia so she was directed to the ER for further evaluation. Patient states she had not received a flu vaccination. She had unknown sick contacts. Hospital Course Hospital Course Hospital Course: The patient's chest x-ray did show bilateral pneumonia. She was started on community-acquired pneumonia protocol and was treated with Levaquin. Her potassium was low and was replaced. She remained short of breath at rest. Her shortness of breath worsened with any exertion. Her potassium improved. By 06/28/2022, she was breathing better and remained on room air with adequate oxygen saturations. She was able to walk in the ron and eat and drink. Her potassium normalized and her renal function normalized as well. Her white blood cell count was elevated, likely due to steroids. She was stable to be discharged home and will follow-up in the office of [facility]. Exam Data for Last 24 hours Vital signs and Labs for Last 24 Hours: Temp Pulse Resp BP Pulse Ox FiO2 98.1 F 81 16 152/91 H 95 28 06/28/22 08:00 06/28/22 08:00 06/28/22 08:00 06/28/22 08:00 06/28/22 08:00 06/26/22 18:27 I & O for Last 24 hours: Intake & Output 06/27/22 06/28/22 06/29/22 06/30/22 11:59 11:59 11:59 11:59 Intake Total 3017 / 3017 1764 / 1764 Output Total 0 / 0 0 / 0 Balance 3017 / 3017 1764 / 1764 Weight 160 lb 2 oz 163 lb 2 oz Narrative: Constitutional Constitutional: mild distress (tachypnea) *Routine HEENT Exam Head: Present normocephalic Eye: Present EOMI and PERRL ENT: Present mucous membranes moist *Routine Neck Exam Neck: Present supple; Absent lymphadenopathy *Routine Respiratory Exam Respiratory: Present crackles (bilateral); Absent wheezes *Routine Cardiovascular Exam Cardiovascular: Present RRR *Routine Abdominal Exam Abdominal: Present soft and normoactive bowel sounds; Absent tenderness *Routine Rectal Exam Rectal:: deferred *Routine Genitalia Exam Genitalia:: deferred *Routine Extremities Exam Extremities: Absent cyanosis, clubbing or edema *Routine Skin Exam Skin: Present warm; Absent rash *Routine Neurological Exam Neurological: Present alert and oriented X3 Results Data Completed and Pending Labs on day of discharge: Preliminary micro results at discharge 06/26/22 02:00 Blood Culture - Preliminary Blood NO GROWTH AFTER 48 HOURS 06/26/22 02:00 Blood Culture - Preliminary Blood NO GROWTH AFTER 48 HOURS DS: Diagnosis Discharge Diagnosis (1) CAP (community acquired pneumonia): Status: Acute (2) Bilateral pneumonia: Status: Acute (3) SIRS (systemic inflammatory response syndrome): Status: Acute (4) Influenza A: Status: Acute (5) Acute hypokalemia: Status: Acute Meds Home Medications and Allergies Home Medications Medication Instructions Recorded Confirmed Type methylprednisolone 4 mg tablet 4 mg PO DIRECTED #21 tabs 08/30/21 06/26/22 Rx albuterol sulfate 90 mcg/actuation 2 puff inhalation Q2HP PRN 06/26/22 06/26/22 History aerosol inhaler Shortness Of Breath budesonide-formoterol HFA 160 2 puff inhalation BID Breathing 06/26/22 06/26/22 History mcg-4.5 mcg/actuation aerosol problems inhaler (Symbicort) promethazine-DM 6.25 mg-15 mg/5 mL 5 ml PO QIDP PRN Cough 06/26/22 06/26/22 History oral syrup levofloxacin 750 mg tablet 750 mg PO DAILY #5 tabs 06/28/22 Rx New Prescriptions to Start Prescriptions: levofloxacin Flynn,Fredrick Allergies
== END 2022-06-28 11:12 | disposition home or self-care (01) | DRG 195 ==
LOC: ER 06-26 02:31 → 2ND 06-26 03:01
PROVIDERS: Admitting Provider Internal Medicine Adolescent Medicine; Emergency Provider Emergency Medicine; PCP Family Medicine; Visit Provider Family Medicine
DX: J10.1 Influenza due to other identified influenza virus with other respiratory manifestations (principal); J18.9 Pneumonia, unspecified organism; E87.6 Hypokalemia; F17.210 Nicotine dependence, cigarettes, uncomplicated; I10 Essential (primary) hypertension; E55.9 Vitamin D deficiency, unspecified
CPT/HCPCS: 36415; 80048; 80053; 83605; 83735; 85007; 85025; 86738; 87040; 87070; 87205; 94640; 94760; 94761; 99285; C9803; J1956; U0003; U0005

== ENCOUNTER → 2022-07-06 11:49 | Outpatient (CLI) | payer BC, SELFPAY ==
--- NOTE | 2022-07-06 12:01 | XR_ITS ---
FINAL REPORT CLINICAL HISTORY: CAP..BILATERAL PNEUMONIA..CRACKLES COMPARISON: June 25, 2022 FINDINGS: Two views of the chest were obtained. The heart size and pulmonary vascularity are within normal limits. The mediastinum is normal. There is marked improvement in pulmonary opacities consistent with improved pneumonia. There are mild persistent bibasilar opacities. There is no pneumothorax. The bony thorax is intact. IMPRESSION: Marked improvement in pulmonary opacities consistent with improved pneumonia. Reviewed, Interpreted and Dictated by Lew Raines III, MD Transcribed by Mariama Arroyo Authenticated and [facility]
== END ==
PROVIDERS: PCP Family Medicine; Visit Provider Family Medicine
DX: J18.9 Pneumonia, unspecified organism (principal)
CPT/HCPCS: 71046

== ENCOUNTER → 2022-07-15 11:05 | Outpatient (CLI) | payer BC, SELFPAY ==
[2022-07-15 12:37] LABS: Potassium 4.3 mmoL/L (3.5-5.1)
== END ==
PROVIDERS: PCP Family Medicine; Visit Provider Family Medicine
DX: E87.6 Hypokalemia (principal)
CPT/HCPCS: 36415; 84132

== ENCOUNTER → 2023-01-19 10:48 | Outpatient (CLI) | payer BC, SELFPAY ==
--- NOTE | 2023-01-19 10:51 | MM_ITS ---
PROCEDURE INFORMATION: Exam: MG Bilateral Screening 3D Mammography Exam date and time: 01/19/2023 10:41 AM Age: 42 years old Clinical indication: Screening - had been recommended for continued six-month follow-up for probably benign tissue asymmetry in the right breast on 02/02/2022 which had been followed from 07/23/2021. Her mother and maternal aunt had breast cancer. TECHNIQUE: Imaging protocol: Bilateral Screening tomosynthesis and 2D mammography including computer-aided detection (CAD) when performed. COMPARISON: 1. MG MM DIG MAMM DX UNILAT RT CAD 02/02/2022 1:50 PM 2. MG MM DIG SCREENING MAMM BI W/CAD 07/23/2021 3:24 PM 3. MG MM DIG SCREENING MAMM BI W/CAD 07/08/2020 3:00 PM 4. MG MM DIG SCREENING MAMM BI W/CAD 07/11/2019 8:21 AM FINDINGS: MAMMOGRAPHY: Breast composition: The breasts are heterogeneously dense, which may obscure small masses. Mass: None. Architectural distortion: None. Calcifications: No suspicious calcifications. Asymmetric density: Stable broad asymmetry in the right upper outer quadrant since at least 07/23/2021. No developing asymmetries. Skin thickening: None. Axillary adenopathy: None. IMPRESSION: Probably benign tissue asymmetry in the right breast since at least 07/23/2021, continued six-month follow-up right diagnostic mammography advised to complete a 2 year follow-up cycle, unless otherwise clinically indicated. Given the reported risk factors coupled with the patient's breast density, a breast cancer risk assessment may prove useful for further evaluation. ASSESSMENT: BI-RADS Category 3: Probably benign
== END ==
PROVIDERS: PCP Family Medicine; Visit Provider Family Medicine
DX: Z12.31 Encounter for screening mammogram for malignant neoplasm of breast (principal)
CPT/HCPCS: 77063; 77067

== ENCOUNTER → 2023-07-13 13:42 | Outpatient (CLI) | payer BC, SELFPAY ==
--- NOTE | 2023-07-13 13:55 | MM_ITS ---
PROCEDURE INFORMATION: Exam: MG Right Diagnostic Breast Tomosynthesis Exam date and time: 07/13/2023 1:44 PM Age: 42 years old Clinical indication: Short-term radiographic followup; Right breast; asymmetry TECHNIQUE: Imaging protocol: Right Diagnostic tomosynthesis and 2D mammography including computer-aided detection (CAD) when performed. Unilateral or bilateral exam. COMPARISON: 1. MG MM DIG SCREENING MAMM BI W/CAD 01/19/2023 10:41 AM 2. MG MM DIG MAMM DX UNILAT RT CAD 02/02/2022 1:50 PM FINDINGS: MAMMOGRAPHY: The breast is heterogeneously dense, which may obscure small masses. There is no stellate mass, architectural distortion or suspicious microcalcifications to suggest malignancy. Stable benign appearing tissue asymmetry on routine and spot compression views in the right upper outer quadrant. No skin thickening or axillary adenopathy. IMPRESSION: No mammographic evidence of malignancy. Annual bilateral mammographic screening is recommended in December 2023 unless otherwise clinically indicated. ASSESSMENT: BI-RADS Category 1: Negative
== END ==
LOC: RAD 13:43
PROVIDERS: PCP Family Medicine; Visit Provider Family Medicine
DX: N63.11 Unspecified lump in the right breast, upper outer quadrant (principal)
CPT/HCPCS: 77061; 77065; G0279

== ENCOUNTER 2023-10-23 11:11 | Emergency (ER) | payer BC, SELFPAY ==
[2023-10-23 11:20] VITALS: BP 143/96; PULSE 116; RESP 22; TEMP 37.2; O2SAT 100; BMI 29.9
--- NOTE | 2023-10-23 11:34 | EXP.UTC ---
Discharge Plan Disposition Patient Disposition: Home, Self-Care Condition: Good Prescriptions Prescriptions: New penicillin V potassium 500 mg tablet 500 mg PO BID Qty: 20 0RF Referrals Follow up/Referrals: Fredrick May MD [Primary Care Provider] - See instructions Activity Restrictions/Add. Instructions Additional Instructions/Restrictions: *Monitor Temp, Over the counter Motrin or Tylenol as directed/as needed Tylenol every 4 hours and Motrin every 6 hours (as long as your family doctor has told you that you can take it) for fever or pain. and straight to ER if unable to lower temp less than 101.0 after medication given *Warm salt water gargles may help to soothe the throat *Throat Lozenges? *Warm fluids like tea with honey may help to soothe the throat? *Sleep elevated *Humidifier/Vaporizer *If you did not take Penicillin shot or was unable to, start taking antibiotic immediately and make sure that you take it for the FULL length of time although you should start to feel better in 24-48 hours *change toothbrush and toothpaste 24-48 hours after starting to take antibiotics so you do not reinfect yourself Monitor Temp. Tylenol and/or Ibuprofen as needed. ER if fever is no less than 101 despite alternating Tylenol and Ibuprofen * Encourage fluids, water, Gatorade, powerade, pedialyte if /toddler/or child *Cold fluids, popsicles and ice cream may feel good on his throat Follow up IMMEDIATELY for new or worsening symptoms or no Noticeable improvement over the next 48-72 hours. 911 for difficulty breathing or swallowing Clinical Impressions Clinical Impression: Strep throat Instructions Patient Instructions: Strep Throat, DI for Strep Throat Discharge ED Provider: Ramona Vinson [facility] [place] HPI General Stated complaint: headache,sore throat Mode of Arrival: Ambulatory Source of Information: Patient Limitations: No Limitations Time Seen by Provider: 10/23/23 11:35 Description of Symptoms (Recalled from Triage Doc. by RN): PATIENT C/O HEADACHE THAT STARTED YESTERDAY AND SORE THROAT THAT STARTED THIS MORNING HEENT Symptoms (Recalled from RN notes): Yes Resp Symptoms (Recalled from RN notes): No Skin Symptoms (Recalled from RN notes): No MS Symptoms (Recalled from RN notes): No Functional Status (Recalled from RN notes): WNL History of Present Illness Provider Complaint: Patient states that she started yesterday with headache and this morning she woke up with her throat hurting States that son was dx with strep throat on Tuesday and she thinks she may have it now too Related Data Previous Rx's Medication Instructions Recorded penicillin V potassium 500 mg 500 mg PO BID #20 tabs 10/23/23 tablet Allergies Allergy/AdvReac Type Severity Reaction Status Date / Time No Known Allergies Allergy Verified 05/18/22 10:10 Worker's Comp Is this a Worker's Comp case?: [facility] Dis[facility]: The information contained in this section may have been updated after the patient was seen, as this information can be updated by other users. Medical History (Updated 10/23/23 @ 11:35 by Ramona Vinson APRN) Carpal tunnel syndrome Vitamin D deficiency HTN (hypertension) Left ankle sprain Sprain of left foot Prepatellar bursitis, left knee Surgical History (Updated 10/23/23 @ 11:30 by Laurie Camacho RN) History of tubal ligation H/O knee surgery History of ankle surgery Hx of tubal ligation History of cholecystectomy Family History (Updated 06/26/22 @ 04:14 by Hollie Berg RN) Other Breast cancer Family history of cancer Family history of diabetes mellitus type II Family history of hyperlipidemia Family history of hypertension Family history of myocardial infarction Social History (Updated 06/26/22 @ 04:14 by Hollie Berg RN) Smoking Status: Current every day smoker tobacco type: cigarettes packs per day: 1 second hand exposure: Yes alcohol intake: never substance use type: denies use current occupational status: employed Travel in the last 8 weeks: None household members: spouse and family housing: house current occupation: [employer] current occupational exposures/hazards: No caffeine: Yes ROS Obtained: Yes All systems reviewed & no additional complaints except as documented and Yes Systems reviewed as appropriate & no additional complaints except as documented Constitutional Constitutional: Reports system reviewed and no additional complaints, except as documented, Reports as per HPI, Reports body ache, Reports fever(s) and Reports headache(s) ENT Ears, Nose, Mouth, and Throat: Reports system reviewed and no additional complaints, except as documented, Reports as per HPI, Reports headache(s) and Reports sore throat Cardiovascular Cardiovascular: Reports system reviewed and no additional complaints, except as documented and Reports as per HPI Respiratory Respiratory: Reports system reviewed and no additional complaints, except as documented and Reports as per HPI Gastrointestinal Gastrointestingal: Reports system reviewed and no additional complaints, except as documented and as per HPI Neurologic Neurologic: Reports headache(s) Physical Exam General General appearance: alert and in no apparent distress ENT ENT exam: Present mucous membranes moist Expanded ENT Exam Throat exam: Present tonsillar erythema Respiratory Respiratory exam: Present normal lung sounds bilaterally; Absent respiratory distress or wheezes Cardiovascular Cardiovascular exam: Present regular rate, normal rhythm and normal heart sounds Abdominal Exam Abdominal exam: Present soft and normal bowel sounds; Absent distention or tenderness Neurological Exam Neurological exam: Present alert, oriented X3 and normal gait Medical Decision Making Scout Inquiry Pt receiving controlled substance: No Scout was queried for this patient: No Vital Signs: 10/23/23 11:20 Temperature 98.9 F Temperature Source Oral Pulse Rate [Left Brachial] 116 H Respiratory Rate 22 Blood Pressure [Left Arm] 143/96 H Blood Pressure Mean [Left Arm] 111 Blood Pressure Source [Left Arm] Automatic Cuff Blood Pressure Position [Left Arm] Sitting 02 Sat by Pulse Oximetry 100 Oxygen Delivery Method Room Air Lab Data Lab results reviewed: Yes I reviewed the patient's lab results.
[2023-10-23 11:35] LABS: UTC Strep Screen (Rapid) Positive (Negative)
[2023-10-23 11:36] VITALS: BP 143/96; PULSE 116; RESP 22; TEMP 37.2; O2SAT 100
== END 2023-10-23 11:47 | disposition home or self-care (01) ==
PROVIDERS: Emergency Provider Nurse Practitioner; PCP Family Medicine
DX: J02.0 Streptococcal pharyngitis (principal); R07.0 Pain in throat; R51.9 Headache, unspecified; F17.210 Nicotine dependence, cigarettes, uncomplicated
CPT/HCPCS: 87880; 99212; 99214; G0463

== ENCOUNTER 2024-03-14 13:03 | Outpatient (CLI) | payer BC, SELFPAY ==
--- NOTE | 2024-03-14 13:06 | MM_ITS ---
PROCEDURE INFORMATION: Exam: MG Bilateral Screening 3D Mammography Exam date and time: 03/14/2024 1:07 PM Age: 43 years old Clinical indication: Screening examination TECHNIQUE: Imaging protocol: Bilateral Screening tomosynthesis and 2D mammography including computer-aided detection (CAD) when performed. COMPARISON: 1. MG MM DIG MAMM DX UNILAT RT CAD 07/13/2023 1:44 PM 2. MG MM DIG SCREENING MAMM BI W/CAD 01/19/2023 10:41 AM FINDINGS: MAMMOGRAPHY: Breast composition: The breasts are heterogeneously dense, which may obscure small masses. Mass: None. Architectural distortion: None. Calcifications: No suspicious calcifications. Asymmetric density: Stable asymmetry in the right upper outer quadrant. Skin thickening: None. Axillary adenopathy: None. IMPRESSION: No mammographic evidence of malignancy. Annual screening is recommended unless otherwise clinically indicated. ASSESSMENT: BI-RADS Category 1: Negative
== END 2024-03-14 23:59 | disposition home or self-care (01) ==
LOC: RAD 13:03
PROVIDERS: PCP Family Medicine; Visit Provider Family Medicine
DX: Z12.31 Encounter for screening mammogram for malignant neoplasm of breast (principal)
CPT/HCPCS: 77063; 77067

== ENCOUNTER 2024-07-23 15:26 | Outpatient (CLI) | payer BC, SELFPAY ==
--- NOTE | 2024-07-23 15:32 | XR_ITS ---
FINAL REPORT CLINICAL HISTORY: MIDLINE LOW BACK PAIN COMPARISON: None FINDINGS: AP, lateral, and oblique views of the lumbar spine were obtained. There is no acute fracture or acute malalignment. Vertebral body height is preserved. Degenerative change is present, most prominent at the L1-2 level. No acute paraspinal abnormality is identified. IMPRESSION: Mild degenerative change, with no acute osseous abnormalities of the lumbar spine. Reviewed, Interpreted and Dictated by Kym Newsome MD Transcribed by Jessica Dale Authenticated and [facility]
== END 2024-07-23 23:59 | disposition home or self-care (01) ==
LOC: RAD 15:27
PROVIDERS: PCP Family Medicine; Visit Provider Family Medicine
DX: M54.42 Lumbago with sciatica, left side (principal)
CPT/HCPCS: 72110

== ENCOUNTER 2025-06-26 09:33 | Outpatient (CLI) | payer BC, SELFPAY ==
--- NOTE | 2025-06-26 09:35 | MM_ITS ---
PROCEDURE INFORMATION: Exam: MG Bilateral Screening 3D Mammography Exam date and time: 06/26/2025 9:58 AM Age: 44 years old Clinical indication: Screening mammogram TECHNIQUE: Imaging protocol: Bilateral Screening tomosynthesis and 2D mammography including computer-aided detection (CAD) when performed. COMPARISON: 1. MG MM DIG SCREENING MAMM BI W/CAD 07/23/2021 3:24 PM 2. MG MM DIG SCREENING MAMM BI W/CAD 07/11/2019 8:21 AM FINDINGS: MAMMOGRAPHY: Breast composition: The breast is heterogeneously dense, which may obscure small masses. Mass: None. Architectural distortion: No new or suspicious architectural distortion. Calcifications: No new or suspicious calcifications are present Asymmetric density: No new or suspicious asymmetric density is present Skin thickening: None. Axillary adenopathy: None. IMPRESSION: No mammographic evidence of malignancy. Recommend annual screening mammography unless otherwise clinically indicated. ASSESSMENT: BI-RADS category 1: Negative.
== END 2025-06-26 23:59 | disposition home or self-care (01) ==
LOC: RAD 09:34
PROVIDERS: PCP Family Medicine; Visit Provider Family Medicine
DX: Z12.31 Encounter for screening mammogram for malignant neoplasm of breast (principal); R92.333 Mammographic heterogeneous density, bilateral breasts
CPT/HCPCS: 77063; 77067